=== PATIENT | female | born 1935 | race Two or more races ===

== ENCOUNTER → 2023-06-26 13:12 | Outpatient (REF) | payer OTHER, SELFPAY | LOC: RAD 13:12 | PROVIDERS: ATTENDING PHYSICIAN Nurse Practitioner Family | DX: M25.562 Pain in left knee (principal) | CPT/HCPCS: 73564 ==

== ENCOUNTER 2023-08-17 12:01 | Emergency (ER) | payer OTHER, SELFPAY ==
[2023-08-17 12:05] VITALS: BP 164/59
[2023-08-17 12:40] VITALS: BP 168/62
[2023-08-17 13:00] VITALS: BP 180/55
[2023-08-17 13:13] LABS: % Basophils 0.3 % (0-2); % Eosinophils 0.9 % (0-6); % Immature Granulocytes 0.4 % (0-0.5); % Lymphocytes 11.3 % (20.5-51.1); % Monocytes 9.4 % (1.7-9.3); % Neutrophils 77.7 % (42.2-75.2); Absolute Eosinophils 0.1 10^3/uL (0-0.7); Absolute Lymphocytes 1.1 10^3/uL (1.2-3.4); Absolute Monocytes 0.9 10^3/uL (0.1-0.6); Absolute Neutrophils 7.8 10^3/uL (1.4-6.5); Hemoglobin 13.1 g/dL (12.0-16.0); Mean Corpuscular Hgb 29.6 pg (27.0-31.0); Mean Corpuscular Volume 92.8 fL (81.0-99.0); Mean Platelet Volume 10.7 fL (7.4-10.4); Nucleated Red Blood Cells % 0 %; Platelet Count 211 10^3/uL (130-400); Red Blood Cell Count 4.42 10^6/uL (4.20-5.40)
[2023-08-17 13:22] LABS: INR 1.17; PT 14.7 Sec (11.4-14.6)
[2023-08-17 13:23] LABS: APTT 30.2 Sec (23.4-35.0)
[2023-08-17 13:40] LABS: ALT (SGPT) 22 U/L (0-35); AST (SGOT) 31 U/L (14-36); Albumin 4.6 g/dl (3.5-5.0); Alkaline Phosphatase 61 U/L (38-126); Blood Urea Nitrogen 47 mg/dl (7-17); Calcium 9.7 mg/dl (8.4-10.2); Carbon Dioxide 28 mmol/L (22-30); Chloride 102 mmol/L (98-107); Glucose 98 mg/dl (70-99); Potassium 4.4 mmol/L (3.5-5.1); Sodium 140 mmol/L (135-145); Total Bilirubin 0.6 mg/dl (0.2-1.3); Total Protein 7.4 g/dl (6.3-8.2); eGFR 18.27
--- NOTE | 2023-08-17 13:48 | ED.GENMED ---
History of Present Illness
General
Chief Complaint: Fall
Source: patient
Exam Limitations: none
Time Seen by Provider: 08/17/23 13:19
Nursing documentation reviewed up to this point in time: agreed with
History of Present Illness
History of Present Illness:
88-year-old female presents emerged from complaining of a fall, back pain and head pain this occurred yesterday. She got dizzy and fell. She complains of right-sided back pain and headache. She has a tremor which they state is from amiodarone.
Past History
Past History
ED Past Medical History: Arrthythmia and HTN
ED Past Surgical History: Cardiac (Pacemaker)
Social History
Tobacco: Non-smoker
Alcohol: None
Drug: None
Personal:
Living: with family
Review of Systems
Review of Systems
Allergies reviewed?: Yes
All Other Systems: Not applicable
Constitutional: Reports no symptoms
EENT: Reports no symptoms
Respiratory: Reports no symptoms
Cardiac: Reports no symptoms; Denies syncope
ABD/GI: Reports no symptoms
: Reports no symptoms
Musculoskeletal: Reports no symptoms
Skin: Reports no symptoms
Neurological: Reports no symptoms
Phy Exam
Physical Exam
Physical Exam:
Physical Exam
General: no apparent distress, not acutely ill
Neck: supple. no meningeal signs. normal posterior pharynx
Heart: s1/s2 regular rate and rhythm, no murmur. equal radial
pulses. Pacemaker left upper chest
HEENT: Pupils equal round reactive to light, EOMI
Lungs: no acute respiratory distress. clear bilaterally, tender to palpation right posterior ribs
Abdomen: normal bowel sounds. not tender. no CVAT
Neuro: alert and oriented. no focal neurological deficits cranial nerves II through XII intact, resting tremor
Skin: no rash
Psychiatric: well kept. interactive and cooperative
Extremities: no edema. no calf tenderness. negative homans. good distal pulses
Course
Orders/Labs/Results
Orders:
Orders
08/17/23 12:11
CT Head W/o Iv Contrast Stat
Comment:
Reason For Exam: Fall on Eliquis
08/17/23 12:13
Electrocardiogram (*1) Urgent
Reason for Study: Vertigo / Dizzy
EKG- Treatment ONCE
08/17/23 12:45
CMP [Comprehensive Metabolic Panel] Urgent
Complete Blood Count/With Diff Urgent
PT/INR [Prothrombin Time] Urgent
PTT Urgent
08/17/23 13:45
Acetaminophen [Tylenol] 650 mg PO NOW STA
Ribs, Right 3 View W/PA Chest [CR Ribs-right 3 Vw W/pa Chest*] Urgent
Comment:
Reason For Exam: right rib pain
08/17/23 15:04
Lidocaine [Lidocaine 4% Patch] 1 patch TOPICAL STAT STA
Abnormal Lab Results
08/17/23
12:45
MCHC 32.0 L g/dL
(33.0-37.0)
MPV 10.7 H fL
(7.4-10.4)
Absolute Neuts (auto) 7.8 H 10^3/uL
(1.4-6.5)
Absolute Lymphs (auto) 1.1 L 10^3/uL
(1.2-3.4)
Absolute Monos (auto) 0.9 H 10^3/uL
(0.1-0.6)
Neutrophils % 77.7 H %
(42.2-75.2)
Lymphocytes % 11.3 L %
(20.5-51.1)
Monocytes % 9.4 H %
(1.7-9.3)
PT 14.7 H Sec
(11.4-14.6)
BUN 47 H mg/dl
(7-17)
Creatinine 2.5 H mg/dL
(0.6-1.0)
08/17/23 12:45
08/17/23 12:45
Vital Signs
Initial and Last Documented VS:
Initial Vital Signs
Temp Pulse Resp BP Pulse Ox
98.0 F 62 18 164/59 98
08/17/23 12:05 08/17/23 12:05 08/17/23 12:05 08/17/23 12:05 08/17/23 12:05
Last Documented Vital Signs
Temp Pulse Resp BP Pulse Ox
98.0 F 60 18 154/65 95
08/17/23 12:05 08/17/23 14:03 08/17/23 14:03 08/17/23 15:15 08/17/23 15:16
MDM/Problems Addressed
Differential Diagnosis Includes:
Intracranial hemorrhage, pneumothorax, rib fracture
MDM/Problems Addressed:
88-year-old female with right rib fracture, fall, chronic renal failure
Chronic conditions affecting care: Arrhythmia and Kidney disease
Acute Exacerbation and/or Progression of Chronic Illness: Arrhythmia and Kidney disease
*Radiology
Radiology exam reviewed: radiology read reviewed (CT head no acute findings, chest x-ray shows right rib fracture seventh rib)
*Pulse Oximetry
Patient hypoxic: no
*EKG
Interpreted by ED Provider?: Yes
EKG Intrepretation Date: 08/17/23
EKG Intrepretation Time: 12:19
Interpretation: abnormal
Comparison EKG: no comparison EKG present
Heart Rate: 60
Rate: normal
Rhythm: av sequential
[place]: normal axis
Interval: normal interval
QRS Pattern: normal QRS
Ischemia: no ischemia
*Fabric Worker Fitter Interpretation
Rate: normal
Interpretation: abnormal
Heart Rate: 60
Rhythm: av sequential
*Critical Care Note
Total Time (30-74mins, 75-104mins- exclusive of procedures): Not Applicable
Patient Management
Social determinants of health affecting care: Living situation and Strong social support
Escalation/DeEscalation of care consider admission/obs:
Admit not indicated
ED Attending Note
-
Portions of this chart may have been created with voice recognition software.� Occasional wrong word or��sound alike� substitutions may have occurred due to the inherent limitations of voice recognition software.
Discharge Plan
Departure
Patient Disposition: Home (Routine Discharge)
Date of Disposition: 08/17/23
Time of Disposition: 15:08
Patient with high blood pressure during this ER visit?: Yes
Condition: Good
Discharge Problem:
Right rib fracture, Fall
Instructions: Head Injury in Adults (DC), Preventing falls in adults, BLOOD PRESSURE, Rib Fracture
Prescriptions:
New
lidocaine [Lidoderm] 5 % adhesive patch,medicated
1 patch topical DAILY Qty: 15 0RF
No Action
doxycycline monohydrate 100 mg capsule
100 mg PO BID Qty: 10 0RF
benzonatate 200 mg capsule
200 mg PO TID PRN (Reason: Cough) Qty: 20 0RF
Referrals:
UNKNOWN - PT DOES,NOT KNOW [Family Provider] -
Interventions
Interventions:
*Risk Screen - Suicide Last Done: 08/17/23 12:42
*General Assessment Last Done: 08/17/23 12:42
*Neglect/Abuse Screening Last Done: 08/17/23 12:42
ED- Fall Risk Assessment Last Done: 08/17/23 15:21
*ED COVID-19 Vaccine History Last Done: 08/17/23 12:42
*Nursing Disposition Last Done: 08/17/23 15:21
ED-Musculoskeletal Assessment Last Done: 08/17/23 12:42
ED- Neurological Assessment Last Done: 08/17/23 12:42
ED-Skin Assessment Last Done: 08/17/23 12:42
Discharge Date and Time
Discharge Date/Time: 08/17/23 15:25
Print Language: PERSIAN
[2023-08-17] MEDS: TYLENOL 650 MG PO (13:51)
[2023-08-17 15:15] VITALS: BP 154/65
[2023-08-17] MEDS: LIDOCAINE 4% PATCH 1 PATCH TOPICAL (15:18)
== END 2023-08-17 15:25 | disposition home or self-care (01) ==
LOC: EMR 12:01
PROVIDERS: Emergency Medicine; EMERGENCY PHYSICIAN Emergency Medicine
DX: S22.31XA Fracture of one rib, right side, initial encounter for closed fracture (principal); R42 Dizziness and giddiness; R51.9 Headache, unspecified; W19.XXXA Unspecified fall, initial encounter; R25.1 Tremor, unspecified; I12.9 Hypertensive chronic kidney disease with stage 1 through stage 4 chronic kidney disease, or unspecified chronic kidney disease; N18.9 Chronic kidney disease, unspecified; I48.91 Unspecified atrial fibrillation; Z95.0 Presence of cardiac pacemaker
CPT/HCPCS: 99284; 70450; 71101; 80053; 85025; 85610; 85730; 93005

== ENCOUNTER → 2024-03-13 12:08 | Outpatient (REF) | payer OTHER, SELFPAY | LOC: RAD 12:08 | PROVIDERS: ATTENDING PHYSICIAN Family Medicine | DX: M25.561 Pain in right knee (principal) | CPT/HCPCS: 73562; 73565 ==

== ENCOUNTER 2024-08-10 23:33 | Inpatient (IN) | payer MEDICARE, SELFPAY ==
[2024-08-10] VITALS (15 sets, daily range): BP systolic 123–251; BP diastolic 56–107; BMI 16.7
[2024-08-10 18:32] LABS: % Basophils 0.3 % (0-2); % Eosinophils 0.6 % (0-6); % Immature Granulocytes 0.3 % (0-0.5); % Lymphocytes 13.1 % (20.5-51.1); % Monocytes 10.3 % (1.7-9.3); % Neutrophils 75.4 % (42.2-75.2); Absolute Eosinophils 0.1 10^3/uL (0-0.7); Absolute Lymphocytes 1.3 10^3/uL (1.2-3.4); Absolute Neutrophils 7.4 10^3/uL (1.4-6.5); Hematocrit 40.6 % (37.0-47.0); Hemoglobin 13.8 g/dL (12.0-16.0); Mean Corpuscular Hgb 31.3 pg (27.0-31.0); Mean Corpuscular Volume 92.1 fL (81.0-99.0); Nucleated Red Blood Cells % 0 %; Platelet Count 215 10^3/uL (130-400); Red Blood Cell Count 4.41 10^6/uL (4.20-5.40); Red Cell Dist. Width 12.6 % (11.5-14.5); White Blood Cell Count 9.8 10^3/uL (4.8-10.8)
[2024-08-10 18:54] LABS: ALT (SGPT) 21 U/L (0-35); AST (SGOT) 27 U/L (14-36); Albumin 4.4 g/dl (3.5-5.0); Alkaline Phosphatase 64 U/L (38-126); Blood Urea Nitrogen 57 mg/dl (7-17); Calcium 9.5 mg/dl (8.4-10.2); Carbon Dioxide 24 mmol/L (22-30); Chloride 103 mmol/L (98-107); Glucose 123 mg/dl (70-99); Potassium 4.4 mmol/L (3.5-5.1); Sodium 138 mmol/L (135-145); Total Bilirubin 0.5 mg/dl (0.2-1.3); eGFR 23.73
[2024-08-10 19:06] LABS: Troponin I 0.018 ng/ml
--- NOTE | 2024-08-10 19:20 | ED.GENMED ---
History of Present Illness
General
Chief Complaint: Blood Pressure Problem
Source: patient and family (Son)
Exam Limitations: none
Time Seen by Provider: 08/10/24 19:06
Nursing documentation reviewed up to this point in time: agreed with
History of Present Illness
History of Present Illness:
89-year-old female with a past medical history of atrial fibrillation on Eliquis, hypertension, pacemaker, CKD who presents to the emergency room with her son for evaluation of hypertension, frequent falls, headache and dizziness. Patient reports
that her primary reason for coming to the hospital today is due to severe hypertension. She says that she checks her blood pressure regularly and lately her blood pressures have been high, today blood pressure was very high at 220 systolic which
ultimately prompted her ER visit. She says she has been compliant with all her medications including metoprolol for blood pressure; she denies any recent adjustments last adjustment to her blood pressure medication was over 2 months ago. She
denies any missed doses.
Apart from blood pressure, patient is also complaining of significant weakness and frequent falls recently. She specifically cites a few falls last week�son says that she gets up to go to the bathroom at night and slips and falls. She says that
she hit her head and her chest and has had some headaches, dizziness, rib pain particular on the right side. The symptoms have been constant for the past week. She says she has been feeling mildly nauseated no vomiting. Denies any neck or back
pain. She denies any abdominal pain. She denies any injury to her extremities. She is on Eliquis.
Past History
Past History
ED Past Medical History: Arrthythmia and HTN
ED Past Surgical History: Cardiac (Pacemaker)
Social History
Tobacco: Non-smoker
Alcohol: None
Drug: None
Personal:
Living: with family
Review of Systems
Review of Systems
All Other Systems: ROS reviewed and negative except as documented in HPI and ROS
Constitutional: Reports fatigue; Denies fever
Respiratory: Denies trouble breathing
Cardiac: Reports chest pain (Rib pain)
ABD/GI: Reports nausea and diarrhea; Denies abdominal pain or vomiting
: Denies dysuria or flank pain
Musculoskeletal: Denies neck pain or back pain
Neurological: Reports dizzy, headache and weakness (Generalized); Denies numbness
Phy Exam
Physical Exam
Physical Exam:
General: Awake, alert, oriented x3 although hard of hearing; no acute distress
Head: Normocephalic, atraumatic
Eyes: Conjunctiva normal, EOMI, pupils equal round and reactive to light bilaterally
Throat: Airway intact, handling secretions, tongue atraumatic
Neck: Trachea midline, supple without meningismus, no midline cervical spine tenderness
Back: No signs of trauma to the back or flank and no tenderness in the thoracic or lumbar spine
Lungs: Clear to auscultation bilaterally, no wheezing, rales, rhonchi
Heart: Regular rate and rhythm, no murmurs, gallops, or rubs appreciated; mild posterior lateral right chest wall tenderness but no crepitus, no ecchymosis
Abd: Soft, non distended, nontender, no palpable masses
Neuro: Cranial nerves intact 2 through 12, speech fluid no dysarthria or aphasia, motor and sensory exam intact and symmetric proximally and distally in the upper and lower extremities
Extremities: Atraumatic, no edema in extremities, equal pulses in all extremities
Scores
Heart Failure Risk
Heart Failure Risk Score: Not Applicable
Heart Score for Chest Pain Patients
STEMI patient?: Not applicable
Withdrawal Assessment of Alcohol
Withdrawal Assessment Completed?: Not applicable
Course
Orders/Labs/Results
Orders:
Orders
08/10/24 18:19
Electrocardiogram (*1) Urgent
Reason for Study: Vertigo / Dizzy
CT Head W/o Iv Contrast Urgent
Comment:
Reason For Exam: dizziness/headache
08/10/24 18:20
EKG- Treatment ONCE
08/10/24 18:27
Complete Blood Count/With Diff Urgent
Comprehensive Metabolic Panel Urgent
Troponin I Urgent
08/10/24 19:19
CT Cervical Spine W/o Iv Contr Urgent
Comment:
Reason For Exam: fall with head strike; headaches
CT Chest W/o Iv Contrast Urgent
Comment:
Reason For Exam: right rib pain s/p fall
Labetalol HCl [Trandate] 10 mg IV NOW STA
08/10/24 19:20
Urinalysis Reflex To Culture Urgent
08/10/24 19:21
Interrogate Pacemaker- Treatment ONCE
08/10/24 20:08
Labetalol HCl [Trandate] 20 mg IV NOW STA
08/10/24 22:11
HydrALAZINE [Apresoline] 10 mg IV NOW STA
08/10/24 23:00
Flush (0.9% Sodium Chloride) [Flush (Nss)] See Dose Instructions IV PER PROTOCOL
08/10/24 23:18
Admit/Transfer Patient As Directed
Co-Sign Provider:
Level of Care: Inpatient admission
Assign to:: Telemetry
Physician / Group: Harris
Diagnosis: Hypertensive Urgency, Tremor, Gait Dysfunction
Reason for Telemetry: Arrhythmia
Date to Stop Telemetry: 08/13/24
Time to Stop Telemetry: 11:00
Reason for Hospitalization: Hypertensive Urgency, Tremor, Gait Dysfunction
Expected length of stay greater than two midnights?: Yes
ELOS- Estimated Length of Stay in days: 2
I certify the patient meets the requirements for IP care: Yes
08/10/24 23:19
PRN Pain Medication Management As Directed
May give lesser potent ordered pain med per pt: Yes
preference::
Protocol:: Medication orders for pain may be administered in a
manner that supports deferring to patient preference
when the pt is:
- Requesting an ordered lesser potent pain medication.
Least to most potent pain medications are defined
as: acetaminophen < NSAID < tramadol < opioids
(morphine, oxycodone, hydromorphone).
- Requesting a lesser dose of the same medication IF
ORDERED.
- Requesting a less intrusive route of administration
if both routes are prescribed by the provider (PO <
IV).
08/10/24 23:21
Code Status As Directed
Resuscitation Status: Full Code
08/13/24 11:00
DC Protocol for Telemetry ONCE
Abnormal Lab Results
08/10/24
18:27
MCH 31.3 H pg
(27.0-31.0)
MPV 11.0 H fL
(7.4-10.4)
Absolute Neuts (auto) 7.4 H 10^3/uL
(1.4-6.5)
Absolute Monos (auto) 1.0 H 10^3/uL
(0.1-0.6)
Neutrophils % 75.4 H %
(42.2-75.2)
Lymphocytes % 13.1 L %
(20.5-51.1)
Monocytes % 10.3 H %
(1.7-9.3)
BUN 57 H mg/dl
(7-17)
Creatinine 2.0 H mg/dL
(0.6-1.0)
Glucose 123 H mg/dl
(70-99)
08/10/24 18:27
08/10/24 18:27
Vital Signs
Initial and Last Documented VS:
Initial Vital Signs
Temp Pulse Resp BP Pulse Ox
36.7 C 78 20 196/98 97
08/10/24 18:18 08/10/24 18:18 08/10/24 18:18 08/10/24 18:18 08/10/24 18:18
Last Documented Vital Signs
Temp Pulse Resp BP Pulse Ox
36.7 C 77 21 162/64 95
08/10/24 18:18 08/10/24 23:00 08/10/24 23:00 08/10/24 22:54 08/10/24 23:00
MDM/Problems Addressed
Differential Diagnosis Includes:
Hypertension--urgency versus emergency
Frequent falls--must rule out traumatic injury including subarachnoid, subdural, intraparenchymal brain bleed as well as rib fractures
MDM/Problems Addressed:
89-year-old female presents for evaluation of severe hypertension despite medication compliance; she has also been feeling unwell for the past week including feeling generalized weakness, multiple falls, headaches, dizziness, rib pain. Vitals and
exam as above�notably her blood pressure in triage was 196/98�during my assessment her blood pressure was markedly elevated to 243/81. Heart rate in the 70s. Rest of vitals normal. Physical exam as above. She had lab work sent in triage
including CBC which showed no clinically significant abnormalities, CMP which showed stable CKD with creatinine of 2.0. Her troponin is negative. EKG is a sinus rhythm with LVH and nonspecific ST changes; will interrogate her device. Will check
CT of the head, cervical spine, chest. Will provide dose of IV labetalol for treatment of severe hypertension. Reassess after the above.
Blood pressure after initial dose of labetalol still markedly elevated to 223/73. Heart rate 80s. Provide repeat dose of labetalol and reassess.
Blood pressure improving slightly�continue to monitor.
CT head shows no acute abnormalities. CT cervical spine and chest reviewed by me showed no acute posttraumatic pathology�final report pending. Her blood pressure is still over 200 after transient improvement status post second dose of labetalol.
Will trial hydralazine. At this point with persistent blood pressure greater than 200 I think she should be admitted for management of her hypertensive urgency refractory to treatment. Discussed case with hospitalist.
Chronic conditions affecting care:
Hypertension, atrial fibrillation
Acute Exacerbation and/or Progression of Chronic Illness:
Acutely hypertensive treated as above
*Radiology
Radiology exam reviewed: radiology read reviewed
*Pulse Oximetry
Patient hypoxic: no
*EKG
Interpreted by ED Provider?: Yes
Heart Rate: 73
Rate: normal
Rhythm: sinus
[place]: normal axis
Interval: normal interval
QRS Pattern: left vent hypertrophy
Ischemia: non-specific ST changes
*Critical Care Note
Total Time (30-74mins, 75-104mins- exclusive of procedures): Not Applicable
Data Reviewed
Review of Other/Old Records Reveals: Labs and Records
Source: patient and family
Patient Management
Discussion with other providers: Hospitalist (Discussed with hospitalist)
Escalation/DeEscalation of care consider admission/obs:
Admission indicated
ED Attending Note
-
Portions of this chart may have been created with voice recognition software.� Occasional wrong word or��sound alike� substitutions may have occurred due to the inherent limitations of voice recognition software.
Discharge Plan
Departure
Patient Disposition: Admit
Date of Disposition: 08/10/24
Time of Disposition: 22:13
Admit to doctor: Harris
Presentation/result/management discussed w/ accepting MD/DO: Hospitalist
Discharge Problem:
Hypertensive urgency
Interventions
Interventions:
*Risk Screen - Suicide Last Done: 08/10/24 19:00
*General Assessment Last Done: 08/10/24 18:18
*Neglect/Abuse Screening Last Done: 08/10/24 19:00
*ED- Fall Risk Assessment Last Done: 08/10/24 19:00
*ED COVID-19 Vaccine History Last Done: 08/10/24 19:00
ED- Cardiac Assessment Last Done: 08/10/24 19:00
ED- Neurological Assessment Last Done: 08/10/24 19:00
ED- Pulmonary Assessment Last Done: 08/10/24 19:00
[2024-08-10] MEDS: TRANDATE 10 MG IV (19:25)
[2024-08-10] MEDS: TRANDATE 20 MG IV (20:15)
[2024-08-10] MEDS: APRESOLINE 10 MG IV (22:24)
--- NOTE | 2024-08-10 23:25 | HPS.HSE ---
Family Physician
-
Family Physician: NOT KNOW UNKNOWN - PT DOES
Chief Complaint
-
Tremors, Falls, High BP
History of Present Illness
Patient is an 89y F with PMH significant for hypertension, A-Fib and CKD who presents to ED complaining of tremors, frequent falls and elevated BP. Patient states that she has had worsening tremors over the past 2 weeks or so. Several falls at
home in that time period - multiple with head impact / injury. Patient complains of aches / pain in both shoulders, L hip, headache, etc. She has had tremulous since February of this year and has been seen by Neurology for evaluation. Results of
that work up are unknown - though her symptoms have significantly increased recently. Patient states that she was given a medication (does not know the name) for her shaking, but it made her nauseated and she had to stop taking it.
She has been monitoring her BP at home as well and states that it was very high today with values > 200 systolic at home.
This prompted her to present to the ED for further evaluation and treatment.
Outpatient notes via External Med Summary indicate that patient's med list is not consistent with recommended medications from Cardiology / Nephrology.
Specifically, she is recommended to be on spironolactone yet this never appears on her own med list.
She was also previously on amlodipine and doxazosin. It is not clear from the notes whether these were officially discontinued or patient simply stopped taking them.
Last month, her amiodarone was increased due to A-fib burden (30%) and her Toprol was changed to BID due to A-fib and uncontrolled BP.
Medical History
Past Medical History
Past Medical History: Reports Other
Additional Past Medical History:
Hypertension
Paroxysmal Atrial Fibrillation
SSS s/p PPM
CKD IV
COPD
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
Past Surgical History: Reports Other
Additional Past Surgical History:
PPM Placement
Hernia Repair
Social History
Tobacco: Non-smoker
Alcohol: None
Drug: None
Family History
Family History: Not pertinent
Allergies / Home Medications
Allergies reflects when Allergies were last updated in [facility].
Home Medications with original date entered in [facility]
Allergy/Medication List:
Allergies
Allergy/AdvReac Type Severity Reaction Status Date / Time
No Known Allergies Allergy Verified 08/10/24 18:18
Home Medications
amiodarone 200 mg tablet 200 mg PO DAILY 08/10/24
apixaban 2.5 mg tablet (Eliquis) 2.5 mg PO BID 08/10/24
cephalexin 500 mg capsule 500 mg PO BID 08/10/24
cholecalciferol (vitamin D3) 25 mcg (1,000 unit) tablet (Vitamin D3) 25 mcg PO DAILY 08/10/24
cyanocobalamin (vitamin B-12) 1,000 mcg tablet 1,000 mcg PO DAILY 08/10/24
dapagliflozin propanediol 5 mg tablet (Farxiga) 5 mg PO DAILY 08/10/24
metoprolol succinate 25 mg tablet,extended release 24 hr (Toprol XL) 25 mg PO BID 08/10/24
Review of Systems
-
History Source: Patient
A 12 point ROS was completed and negative except as noted: Yes
Constitutional: Reports Fatigue; Denies Fever or Chills
EENT: Denies Sore Throat
Respiratory: Reports Trouble Breathing (dyspnea with activity / exertion); Denies Cough
Cardiac: Denies Chest Pain or Syncope
Abdomen/GI: Denies Abdominal Pain, Nausea, Vomiting or Diarrhea
: Denies Dysuria, Frequency or Flank Pain
Musculoskeletal: Reports Joint Pain and Muscle Pain; Denies Edema
Neurological: Reports Dizzy, Headache and Weakness; Denies Numbness
Psych: Denies Depression or Anxiety
Physical Exam
Vital Signs
Vital Signs
Temp Pulse Resp BP Pulse Ox
98.0 F 77 21 162/64 95
08/10/24 18:18 08/10/24 23:00 08/10/24 23:00 08/10/24 22:54 08/10/24 23:00
Physical Exam
General: Other (89y F in mild distress due to pain / tremulousness.)
HEENT: Moist mucous membranes and PERRLA
Respiratory: Clear; No Wheezes, Rales or Rhonchi
Cardiac: S1/S2 and Regular Rhythm; No Murmur
GI: Soft, Non Tender, Non Distended and Normal Bowel Sounds
Musculoskeletal: No Clubbing, No Cyanosis and No Edema
Neuro: AO x 3, Nonfocal/grossly intact and Other (Generalized tremor at rest and with intent. No cogwheeling / rigidity appreciated.)
Laboratory Results
-
08/10/24 18:27
08/10/24 18:27
Laboratory Results
Total Bilirubin 0.5 mg/dl (0.2-1.3) 08/10/24 18:27
AST 27 U/L (14-36) 08/10/24 18:27
ALT 21 U/L (0-35) 08/10/24 18:27
Alkaline Phosphatase 64 U/L (38-126) 08/10/24 18:27
Troponin I 0.018 ng/ml 08/10/24 18:27
Impression/Plan
-
A/P: Patient is an 89y F with PMH significant for hypertension, A-Fib and CKD who presents to ED for evaluation of tremor, gait dysfunction and elevated BP.
Tremulousness
Ambulatory Dysfunction
Frequent Falls
- Admit for further evaluation and treatment.
- PT / OT evaluations.
- Neurology eval for additional recommendations.
- ? Parkinsonism given tremors / gait issues - though no significant rigidity, etc noted on exam.
- Suspect that patient would benefit from use of assist device with ambulation - currently she uses none.
Hypertensive Urgency
- BP markedly elevated on initial arrival today.
- Suspect significant tremor is impacting BP measurements to some degree as well.
- Note apparent issues with med list accuracy / compliance / etc based on outpatient notes.
- Restart spironolactone and doxazosin for now.
- Continue Toprol BID. Continue Farxiga.
- Adjust med regimen as needed for improved control.
- IV hydralazine as needed for very high BPs acutely.
- Follow-up with Nephrology (Dr. Aroldo Rodgers) at discharge.
Paroxysmal Atrial Fibrillation
- Stable. Continue amiodarone and Toprol.
- Continue Eliquis for stroke risk reduction - may need to re-evaluate risk : benefit given fall frequency.
CKD IV
- Stable. SCr is at / near known baseline.
- Follow for changes with above medication adjustments.
DVT Prophylaxis: On Eliquis
Code Status: Full
[2024-08-11] VITALS (11 sets, daily range): BP systolic 115–206; BP diastolic 60–86; PULSE 110; BMI 17.9; BMI 17.4
[2024-08-11 00:35] LABS: Urine Albumin 3+ (Neg - Trace); Urine Bilirubin Negative (Negative); Urine Character Clear (Clear); Urine Color Yellow; Urine Glucose 4+ (Negative); Urine Ketone Negative (Negative); Urine Leukocyte Negative (Negative); Urine Nitrite Negative (Negative); Urine Occult Blood Negative (Negative); Urine Urobilinogen Negative (Neg - 1+)
[2024-08-11 00:43] LABS: Urine Red Blood Cell 0-2 /HPF (0-2)
--- NOTE | 2024-08-11 02:01 | TRANSFER ---
Pt transferred to 3w from ED via stretcher. Pt pulled over to bed, bed alarm in place, daughter at bedside. Pt AAOx3, hard of hearing. Pt oriented to room, call romero within reach, plan of care ongoing.
[2024-08-11] MEDS: CARDURA 2 MG PO ×2 (02:08→23:04)
[2024-08-11 06:52] LABS: Hematocrit 36.9 % (37.0-47.0); Hemoglobin 12.9 g/dL (12.0-16.0); Mean Corpuscular Hgb 31.7 pg (27.0-31.0); Mean Corpuscular Volume 90.7 fL (81.0-99.0); Mean Platelet Volume 11.3 fL (7.4-10.4); Platelet Count 195 10^3/uL (130-400); Red Blood Cell Count 4.07 10^6/uL (4.20-5.40); Red Cell Dist. Width 12.6 % (11.5-14.5); White Blood Cell Count 9.1 10^3/uL (4.8-10.8)
[2024-08-11 07:05] LABS: Blood Urea Nitrogen 50 mg/dl (7-17); Calcium 9.4 mg/dl (8.4-10.2); Carbon Dioxide 28 mmol/L (22-30); Chloride 106 mmol/L (98-107); Estimated Creatinine Clearance 13 ml/min; Glucose 111 mg/dl (70-99); Potassium 3.9 mmol/L (3.5-5.1); Sodium 140 mmol/L (135-145); eGFR 23.73
--- NOTE | 2024-08-11 07:19 | CON.NEURO ---
Consultation
Order
Date of Consultation: 08/11/24
Requesting Provider:
Reason for Consult:
Neurology Consultation Note.
HPI: This is an 89-year-old right-handed woman who presented to [facility] on 08/10/2024 with elevated blood pressure.
Polo Cano states that she has had progressive bilateral hand/head tremor for the last couple of years. The tremors affect both hands, with her right hand being more affected. The tremors have significantly impacted her daily functioning,
particularly her ability to feed herself. For the past couple of months, her family members have been assisting her with feeding using a spoon. No reports of family history of abnormal movements, ataxia or dysarthria.
The patient tried propranolol for her tremors but experienced significant side effects, stating, 'They gave me one medication and I got so sick.' She does not recall trying any other medications.
In addition to the tremors, Ms. Cano presented with severely elevated blood pressure of 240, which prompted her hospital admission. She reports checking her blood pressure every morning at home. The patient also exhibited some coughing during the
interview, though it's unclear if this is a new symptom or related to her current condition.
ER VS: 196/98-251/88, afebrile
PDMP:none
Labs: Creatinine�2, TSH�normal
CT head wo contrast-Mild atrophy. Moderate periventricular small vessel ischemic disease.
CT C spine-moderate disc space narrowing at C5/C6, mild narrowing at C6/C7.
PMH: PA-A fib, SSS, HTN, HFpEF, COPD, CKD, pseudogout, BMI 17, vitamin D, B12 deficiency
PSH: PPM, bilateral cataract surgery, hernia repair
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
FH: Not contributory
All:NKDA
ROS: General: Positive for weight loss.
HENT: Negative for ear pain, hearing loss, tinnitus and trouble swallowing.
Eyes: Negative. Negative for photophobia, pain and visual disturbance.
Respiratory: Negative for cough, choking and shortness of breath.
Cardiovascular: Negative for chest pain, palpitations and leg swelling.
Gastrointestinal: Negative for abdominal pain and vomiting.
Endocrine: Negative. Negative for cold intolerance. y.
Musculoskeletal: Positive for arthralgias
Skin: Negative for rash.
Allergic/Immunologic: Negative. Negative for immunocompromised state.
Neurological: Positive for bilateral hand tremors, worse in right hand. Negative for leg tremors.
Psychiatric/Behavioral: Negative for behavioral problems, confusion and hallucinations.
General: Well developed. In no acute distress.
Cardio: Regular rate and rhythm without murmur. Extremities are without cyanosis or edema.
Neuro:
Mental Status: Alert, oriented to person, place, not to date. Normal attention and recall. Good fund of knowledge. Follows complex requests across the midline. Comprehension, naming, and repetition intact. Immediate and delayed recall 3/3.
Cranial Nerves: Pupils are equally round, surgical. EOMs full. Visual velarde full to confrontation. No ptosis. No nystagmus. V1-V3 intact to light touch and pinprick bilaterally, symmetric. Face symmetric. Impaired hearing AU. The palate
elevated well. SCMs and traps 5/5. Tongue midline. No dysarthria.
Motor: Normal bulk and tone. No pronator or arm drift. Strength 5/5 throughout. No clonus.
Reflexes: 3+ throughout the upper extremities and 3+in knees. Plantar responses flexor bilaterally.
Sensory: Reduced vibration at the toes and ankles
Coordination: Symmetric action and postural hand tremor, head tremor. No voice or leg tremor.
Gait: deferred
Assessment and Plan:
I. Extrapyramidal syndrome
II. Hypertensive urgency
III. Distal symmetric large fiber polyneuropathy
IV. PA A-Fib
-Fall precautions
-Strict blood pressure control
-Avoid medications known to cause tremor as a side effect (amiodarone)
-Start Neurontin 100 mg nightly with titration by 100 mg as tolerated. Please adjust dose based on GFR
-PT
-Consider COSMO in view of ambulatory dysfunction and systemic anticoagulation
-OP Neurology follow up.
I personally reviewed all radiology and labs along with past medical records pertinent to current medical problems. Total time spent in patient care is 60 minutes.
Thank you for allowing us to participate in the care of this patient. We will continue to follow. Please do not hesitate to contact us with any questions or concerns.
Subjective/Objective
Subjective Data
Date of Service: August 11, 2024
Objective Data
Vital Signs
Temp Pulse Resp BP Pulse Ox
36.7 C 115 16 132/72 95
08/11/24 07:05 08/11/24 07:05 08/11/24 07:05 08/11/24 07:05 08/11/24 07:05
Lab Results
08/11/24 06:12
08/11/24 06:12
Sodium 140 mmol/L (135-145) 08/11/24 06:12
Potassium 3.9 mmol/L (3.5-5.1) 08/11/24 06:12
BUN 50 mg/dl (7-17) H 08/11/24 06:12
Glucose 111 mg/dl (70-99) H 08/11/24 06:12
Calcium 9.4 mg/dl (8.4-10.2) 08/11/24 06:12
Patient Allergies
No Known Allergies Allergy (Verified 08/10/24 18:18)
Medications
-
Active Medications
Generic Name Dose Route Start Last Admin
Trade Name Freq PRN Reason Stop Dose Admin
Acetaminophen 650 mg 08/11/24 01:30
Acetaminophen 325 Mg Tablet PO 09/08/24 01:29
Q4HPRN PRN
Mild Pain / Temp > 101
Amiodarone HCl 200 mg 08/11/24 08:00
Amiodarone 200 Mg Tablet PO 09/08/24 07:59
DAILY MISTI
Apixaban 2.5 mg 08/11/24 08:00
Apixaban (Eliquis) 2.5 Mg Tablet PO 09/08/24 07:59
BID MISTI
Dapagliflozin 5 mg 08/11/24 08:00
Dapagliflozin (Farxiga) 5 Mg Tablet PO 09/08/24 07:59
DAILY MISTI
Doxazosin Mesylate 2 mg 08/11/24 01:30 08/11/24 02:08
Doxazosin 2 Mg Tablet PO 09/08/24 01:29 2 mg
HS MISTI Administration
Hydralazine HCl 5 mg 08/11/24 01:30
Hydralazine 20 Mg/Ml Vial IV 09/08/24 01:29
Q6HPRN PRN
SBP > 180
Metoprolol Succinate 25 mg 08/11/24 08:00
Metoprolol 25 Mg Extended Release Tablet PO 09/08/24 07:59
BID MISTI
Sodium Chloride 0 flush 08/10/24 23:00
Sodium Chloride 0.9% (Flush) Syringe IV 09/07/24 22:59
PER PROTOCOL MISTI
Spironolactone 12.5 mg 08/11/24 08:00
Spironolactone 12.5 Mg Dose (1/2 Of 25 Mg Tablet) PO 09/08/24 07:59
DAILY MISTI
Home Medications
�Medication �Instructions �Recorded
amiodarone 200 mg tablet 200 mg PO DAILY 08/10/24
apixaban 2.5 mg tablet (Eliquis) 2.5 mg PO BID 08/10/24
cephalexin 500 mg capsule 500 mg PO BID 08/10/24
cholecalciferol (vitamin D3) 25 25 mcg PO DAILY 08/10/24
mcg (1,000 unit) tablet (Vitamin
D3)
cyanocobalamin (vitamin B-12) 1,000 mcg PO DAILY 08/10/24
1,000 mcg tablet
dapagliflozin propanediol 5 mg 5 mg PO DAILY 08/10/24
tablet (Farxiga)
metoprolol succinate 25 mg 25 mg PO BID 08/10/24
tablet,extended release 24 hr
(Toprol XL)
Vital Signs and Labs
-
Vital Signs and Labs:
Vital Signs
Temp Pulse Resp BP Pulse Ox
36.9 C 104 19 115/60 97
08/11/24 10:53 08/11/24 10:53 08/11/24 10:53 08/11/24 10:53 08/11/24 10:53
Lab Results
08/11/24 06:12
08/11/24 06:12
Sodium 140 mmol/L (135-145) 08/11/24 06:12
Potassium 3.9 mmol/L (3.5-5.1) 08/11/24 06:12
BUN 50 mg/dl (7-17) H 08/11/24 06:12
Glucose 111 mg/dl (70-99) H 08/11/24 06:12
Calcium 9.4 mg/dl (8.4-10.2) 08/11/24 06:12
Medications
-
Medications:
Generic Name Dose Route Start Last Admin
Trade Name Freq PRN Reason Stop Dose Admin
Acetaminophen 650 mg 08/11/24 01:30
Acetaminophen 325 Mg Tablet PO 09/08/24 01:29
Q4HPRN PRN
Mild Pain / Temp > 101
Amiodarone HCl 200 mg 08/11/24 08:00 08/11/24 07:32
Amiodarone 200 Mg Tablet PO 09/08/24 07:59 200 mg
DAILY MISTI Administration
Apixaban 2.5 mg 08/11/24 08:00 08/11/24 07:32
Apixaban (Eliquis) 2.5 Mg Tablet PO 09/08/24 07:59 2.5 mg
BID MISTI Administration
Dapagliflozin 5 mg 08/11/24 08:00 08/11/24 07:32
Dapagliflozin (Farxiga) 5 Mg Tablet PO 09/08/24 07:59 5 mg
DAILY MISTI Administration
Doxazosin Mesylate 2 mg 08/11/24 01:30 08/11/24 02:08
Doxazosin 2 Mg Tablet PO 09/08/24 01:29 2 mg
HS MISTI Administration
Gabapentin 100 mg 08/11/24 11:00 08/11/24 11:21
Gabapentin 100 Mg Capsule PO 09/08/24 10:59 100 mg
BID MISTI Administration
Hydralazine HCl 5 mg 08/11/24 01:30
Hydralazine 20 Mg/Ml Vial IV 09/08/24 01:29
Q6HPRN PRN
SBP > 180
Metoprolol Succinate 25 mg 08/11/24 08:00 08/11/24 07:32
Metoprolol 25 Mg Extended Release Tablet PO 09/08/24 07:59 25 mg
BID MISTI Administration
Metoprolol Succinate 12.5 mg 08/11/24 12:41
Metoprolol 12.5 Mg Extended Release Dose (1/2 Of 25 Mg Xl Tablet) PO 08/11/24 12:42
NOW STA
Sodium Chloride 0 flush 08/10/24 23:00
Sodium Chloride 0.9% (Flush) Syringe IV 09/07/24 22:59
PER PROTOCOL MISTI
Spironolactone 12.5 mg 08/11/24 08:00 08/11/24 07:33
Spironolactone 12.5 Mg Dose (1/2 Of 25 Mg Tablet) PO 09/08/24 07:59 12.5 mg
DAILY MISTI Administration
Home Medications
-
Home Medications
amiodarone 200 mg tablet 200 mg PO DAILY Arrhythmia 08/10/24
apixaban 2.5 mg tablet (Eliquis) 2.5 mg PO BID Blood Clot Prevention/Tx 08/10/24
cephalexin 500 mg capsule 500 mg PO BID Infection 08/10/24
cholecalciferol (vitamin D3) 25 mcg (1,000 unit) tablet (Vitamin D3) 25 mcg PO DAILY Supplement 08/10/24
cyanocobalamin (vitamin B-12) 1,000 mcg tablet 1,000 mcg PO DAILY Supplement 08/10/24
dapagliflozin propanediol 5 mg tablet (Farxiga) 5 mg PO DAILY Diabetes 08/10/24
metoprolol succinate 25 mg tablet,extended release 24 hr (Toprol XL) 25 mg PO BID Heart Disease/Condition 08/10/24
[2024-08-11] MEDS: ELIQUIS 2.5 MG PO ×2 (07:32→20:15)
[2024-08-11] MEDS: FARXIGA 5 MG PO (07:32)
[2024-08-11] MEDS: TOPROL XL 25 MG PO ×2 (07:32→20:15)
[2024-08-11] MEDS: PACERONE 200 MG PO (07:32)
[2024-08-11] MEDS: ALDACTONE 12.5 MG PO (07:33)
[2024-08-11 07:36] LABS: TSH Reflex To Free T4 1.54 uIU/ml (0.47-4.68)
[2024-08-11] MEDS: NEURONTIN 100 MG PO ×2 (11:21→20:15)
--- NOTE | 2024-08-11 11:32 | CM ---
CM reviewed chart and met with pt at bedside. Lives with and son in multistory home, 2 [address], full flight to second floor,
first floor half BA, second floor BR/Full BA.
Independent in ambulation and ADLs/personal care at baseline, denies use of DMEs and no hx VN/SNF
Denies financial insecurities
Daughter lives nearby and provides assistance
Declined Advance Directive information
PCP: pt does not remember her name
Pharmacy: [facility] [place]
PT/OT pending
If SNF needs on discharge will need [facility] auth
Dispo: Anticipate home, follow for VN/SNF needs
[2024-08-11] MEDS: TOPROL XL 12.5 MG PO (12:55)
[2024-08-11 13:59] LABS: Ammonia < 9 umol/L (9-30)
--- NOTE | 2024-08-11 14:06 | W.PN.HOSP.TC ---
Today's Communication/Plan
-
see outlined plan
Assessment / Plan
Assessment / Plan
Assessment:
Tremulousness
Ambulatory Dysfunction
Frequent Falls
- d/w Neurology and diagnosed with Essential tremors - started on Gabapentin. Primidone interacts with Eliquis and patient already on beta-song
- follow Neurology recs
- PT/OT evals
Hypertensive Urgency
- Suspect significant tremor is impacting BP measurements to some degree as well.
- Note apparent issues with med list accuracy / compliance / etc based on outpatient notes.
- Restart spironolactone and doxazosin for now.
- Continue Toprol BID. Continue Farxiga.
- Adjust med regimen as needed for improved control.
- IV hydralazine as needed for very high BPs acutely.
- Follow-up with Nephrology (Dr. Aroldo Rodgers) at discharge.
Paroxysmal Atrial Fibrillation
- Stable. Continue amiodarone and Toprol.
- Continue Eliquis for stroke risk reduction - may need to re-evaluate risk : benefit given fall frequency. OP Watchman evaluation.
CKD IV
- Stable. SCr is at / near known baseline.
- Follow for changes with above medication adjustments.
DVT Prophylaxis:Eliquis
Code Status: Full
Anticipated Discharge: > 48 hours
Subjective/Interval History
-
Date of Service: August 11, 2024
resting comfortably, no complaints at present
Objective Data
-
Labs:
Laboratory Results
08/11/24
06:12
WBC 9.1
Hgb 12.9
Hct 36.9 L
Plt Count 195
Sodium 140
Potassium 3.9
Chloride 106
Carbon Dioxide 28
BUN 50 H
Creatinine 2.0 H
Glucose 111 H
Calcium 9.4
Vital Signs:
Vital Signs
Temp Pulse Resp BP Pulse Ox
98.4 F 104 19 115/60 97
08/11/24 10:53 08/11/24 10:53 08/11/24 10:53 08/11/24 10:53 08/11/24 10:53
Physical Exam
-
General: No Apparent Distress
HEENT: Normocephalic and Atraumatic
Respiratory: Negative Wheezes
Cardiac: Regular Rhythm
GI: Soft
Neuro: Tremors
Psych: Calm
Data Reviewed
-
Total Time Spent with Patient (in minutes): 45
Labs: Labs Reviewed by me
[2024-08-11 14:23] LABS: Free T4 2.25 ng/dl (0.78-2.19)
--- NOTE | 2024-08-11 14:53 | CM ---
PT rec SNF
met with daughter Donna &
options given with medicare.gov packet
daughter states will get back to CM tomorrow once reviewed.
PLAN: SNF, pending bed availability when stable, will need to obtain ins authorization
[2024-08-12] VITALS (8 sets, daily range): BP systolic 120–198; BP diastolic 63–82; PULSE 72–77; O2SAT 94; BMI 17.1
--- NOTE | 2024-08-12 04:29 | DOWNTIME ---
Addendum entered by Bhanu Barger RN 08/12/24 14:14:
Correction to downtime 08/12/2024 from 0100 to 08/12/24 at 0415.
Original Note:
There was a [employer] Downtime on 08/11/2024 from 0100 to 08/12/2024 at 0415. Downtime documentation of patient's care, including medication administrations, has been reconciled in the electronic record per guidelines. Refer to the
patient's paper chart under the miscellaneous tab to see printed paper medication records and downtime forms.
[2024-08-12 05:35] LABS: Hematocrit 34.9 % (37.0-47.0); Hemoglobin 11.9 g/dL (12.0-16.0); Mean Corp Hgb Conc. 34.1 g/dL (33.0-37.0); Mean Corpuscular Hgb 31.4 pg (27.0-31.0); Mean Corpuscular Volume 92.1 fL (81.0-99.0); Mean Platelet Volume 11.2 fL (7.4-10.4); Platelet Count 203 10^3/uL (130-400); Red Blood Cell Count 3.79 10^6/uL (4.20-5.40); Red Cell Dist. Width 12.7 % (11.5-14.5); White Blood Cell Count 8.9 10^3/uL (4.8-10.8)
[2024-08-12 06:11] LABS: Blood Urea Nitrogen 57 mg/dl (7-17); Calcium 9.1 mg/dl (8.4-10.2); Carbon Dioxide 25 mmol/L (22-30); Chloride 107 mmol/L (98-107); Estimated Creatinine Clearance 12 ml/min; Glucose 101 mg/dl (70-99); Potassium 3.9 mmol/L (3.5-5.1); Sodium 139 mmol/L (135-145); eGFR 23.73
[2024-08-12] MEDS: FARXIGA 5 MG PO (08:48)
[2024-08-12] MEDS: NEURONTIN 100 MG PO ×2 (08:49→20:12)
[2024-08-12] MEDS: TOPROL XL 25 MG PO ×2 (08:49→20:12)
[2024-08-12] MEDS: ELIQUIS 2.5 MG PO ×2 (08:49→20:11)
[2024-08-12] MEDS: ALDACTONE 12.5 MG PO (08:50)
[2024-08-12] MEDS: PACERONE 200 MG PO (08:50)
--- NOTE | 2024-08-12 11:27 | W.PN.HOSP.TC ---
Today's Communication/Plan
-
increase Cardura
continue Gabapentin
DC planning to SNF
Assessment / Plan
Assessment / Plan
Assessment:
Tremulousness
Ambulatory Dysfunction
Frequent Falls
- d/w Neurology and diagnosed with Essential tremors - started on Gabapentin. Primidone interacts with Eliquis and patient already on beta-song
- follow Neurology recs
- PT/OT evals - SNF recommended
Hypertensive Urgency
- Suspect significant tremor is impacting BP measurements to some degree as well.
- Continue spironolactone
- Continue doxazosin - increase to 4mg HS
- Continue Toprol BID. Continue Farxiga.
- Adjust med regimen as needed for improved control.
- IV hydralazine as needed for very high BPs acutely.
- Follow-up with Nephrology (Dr. Aroldo Rodgers) at discharge.
Paroxysmal Atrial Fibrillation
- Stable. Continue amiodarone and Toprol.
- Continue Eliquis for stroke risk reduction - may need to re-evaluate risk : benefit given fall frequency. OP Watchman evaluation.
CKD IV
- Stable. SCr is at / near known baseline.
- Follow for changes with above medication adjustments.
DVT Prophylaxis:Eliquis
Code Status: Full
Anticipated Discharge: 24 - 48 hours
Subjective/Interval History
-
Date of Service: August 12, 2024
denies any new complaints at present
Objective Data
-
Labs:
Laboratory Results
08/12/24
05:14
WBC 8.9
Hgb 11.9 L
Hct 34.9 L
Plt Count 203
Sodium 139
Potassium 3.9
Chloride 107
Carbon Dioxide 25
BUN 57 H
Creatinine 2.0 H
Glucose 101 H
Calcium 9.1
Vital Signs:
Vital Signs
Temp Pulse Resp BP Pulse Ox
97.5 F 69 16 179/69 96
08/12/24 07:30 08/12/24 08:49 08/12/24 07:30 08/12/24 08:49 08/12/24 07:30
I&O
08/11/24 08/12/24 08/13/24
06:59 06:59 06:59
Intake Total 600 / 600 240 / 240
Balance 600 / 600 240 / 240
Physical Exam
-
General: No Apparent Distress
HEENT: Normocephalic and Atraumatic
Respiratory: Negative Wheezes
Cardiac: Regular Rhythm and S1/S2
GI: Soft
Genito-urinary: No Costovertebral Tender
Neuro: AO x 3
Psych: Calm
Data Reviewed
-
Total Time Spent with Patient (in minutes): 42
Labs: Labs Reviewed by me
[2024-08-12] MEDS: CARDURA 2 MG PO (12:19)
--- NOTE | 2024-08-12 16:19 | CM ---
met with daughter Donna and at bedside.
[facility] Data given SNF referral made to [facility].
Pt will need auth with [employer].
IMM reviewed and signed on chart.
PLAN Locate SNF obtained auth
[2024-08-12] MEDS: CARDURA 4 MG PO (21:45)
[2024-08-13] VITALS (8 sets, daily range): BP systolic 160–195; BP diastolic 56–144; PULSE 66–73; O2SAT 96; BMI 18.2
[2024-08-13 05:51] LABS: Hemoglobin 11.3 g/dL (12.0-16.0); Mean Corp Hgb Conc. 34.2 g/dL (33.0-37.0); Mean Corpuscular Hgb 31.4 pg (27.0-31.0); Mean Corpuscular Volume 91.7 fL (81.0-99.0); Mean Platelet Volume 11.1 fL (7.4-10.4); Platelet Count 187 10^3/uL (130-400); Red Cell Dist. Width 12.7 % (11.5-14.5); White Blood Cell Count 9.1 10^3/uL (4.8-10.8)
[2024-08-13 06:13] LABS: Blood Urea Nitrogen 73 mg/dl (7-17); Calcium 9.2 mg/dl (8.4-10.2); Carbon Dioxide 25 mmol/L (22-30); Chloride 107 mmol/L (98-107); Estimated Creatinine Clearance 14 ml/min; Glucose 94 mg/dl (70-99); Potassium 4.3 mmol/L (3.5-5.1); Sodium 138 mmol/L (135-145); eGFR 25.24
[2024-08-13] MEDS: TOPROL XL 25 MG PO ×2 (07:51→21:33)
[2024-08-13] MEDS: PACERONE 200 MG PO (07:51)
[2024-08-13] MEDS: NEURONTIN 100 MG PO ×2 (07:51→21:32)
[2024-08-13] MEDS: ELIQUIS 2.5 MG PO ×2 (07:51→21:32)
[2024-08-13] MEDS: ALDACTONE 12.5 MG PO (07:51)
[2024-08-13] MEDS: FARXIGA 5 MG PO (07:51)
[2024-08-13] MEDS: APRESOLINE 5 MG IV ×2 (10:15→16:29)
--- NOTE | 2024-08-13 12:04 | W.PN.HOSP.TC ---
Today's Communication/Plan
-
add Hydralazine PO and assess BP response
Assessment / Plan
Assessment / Plan
Assessment:
Tremulousness
Ambulatory Dysfunction
Frequent Falls
- d/w Neurology on 08/11 and diagnosed with Essential tremors - started on Gabapentin. alternative agents to treat include Primidone (interacts with Eliquis) and beta-song (already on it)
- follow Neurology recs
- PT/OT evals - SNF recommended
Hypertensive Urgency
- Suspect significant tremor is impacting BP measurements to some degree as well.
- Continue spironolactone
- Continue doxazosin - increase to 4mg HS
- Continue Toprol BID.
- continue Hydralazine bid
- continue Farxiga.
- IV hydralazine as needed for very high BPs acutely.
- Adjust med regimen as needed for improved control.
- Follow-up with Nephrology (Dr. Aroldo Rodgers) - records requested.
Paroxysmal Atrial Fibrillation
- Stable. Continue amiodarone and Toprol.
- Continue Eliquis for stroke risk reduction - may need to re-evaluate risk after rehab: benefit given fall frequency. OP Watchman evaluation.
CKD IV
- Stable. SCr is at/near known baseline.
- Follow for changes with above medication adjustments.
DVT Prophylaxis:Eliquis
Code Status: Full
Anticipated Discharge: 24 - 48 hours
Subjective/Interval History
-
Date of Service: August 13, 2024
reports headache from elevated BP
Objective Data
-
Labs:
Laboratory Results
08/13/24
05:12
WBC 9.1
Hgb 11.3 L
Hct 33.0 L
Plt Count 187
Sodium 138
Potassium 4.3
Chloride 107
Carbon Dioxide 25
BUN 73 H
Creatinine 1.9 H
Glucose 94
Calcium 9.2
Vital Signs:
Vital Signs
Temp Pulse Resp BP Pulse Ox
98.5 F 64 16 182/56 96
08/13/24 11:26 08/13/24 10:15 08/13/24 07:00 08/13/24 11:44 08/13/24 11:26
I&O
08/12/24 08/13/24 08/14/24
06:59 06:59 06:59
Intake Total 600 / 600 1800 / 1800
Balance 600 / 600 1800 / 1800
Physical Exam
-
General: No Apparent Distress
HEENT: Normocephalic and Atraumatic
Respiratory: Negative Wheezes
Cardiac: Regular Rhythm and S1/S2
GI: Negative Soft
Genito-urinary: No Costovertebral Tender
Neuro: Tremors
Psych: Calm
Data Reviewed
-
Total Time Spent with Patient (in minutes): 42
Labs: Labs Reviewed by me
[2024-08-13] MEDS: APRESOLINE 25 MG PO ×2 (13:12→21:35)
--- NOTE | 2024-08-13 16:47 | CM ---
Denisha at [facility] said she had a bed.
indicated pt not ready for discahrge.
Donna dgt [phone] said she wasnts him to go to SNF. Pt will need auth.
Dgt aware that need pts social security number.
PLAN To Snf after auth obtained
--- NOTE | 2024-08-13 17:56 | PTCARENOTE ---
Pt. with elevated BP's throughout the shift. PRN medication given per parameters and MD aware. New blood pressure medication given. Plan of care ongoing.
[2024-08-13] MEDS: CARDURA 4 MG PO (21:35)
[2024-08-14] VITALS (7 sets, daily range): BP systolic 120–158; BP diastolic 65–83; PULSE 80–110; BMI 18.4
--- NOTE | 2024-08-14 10:09 | CM ---
Mariela [phone] at [facility] said she had a bed.Update sent to [facility] via care port
Will need auth [facility]:
NPI- [id number]
NPI Dr. Gerardo Alegria-[id number] -
BP elevated yesterday .
Donna dgt [phone] said she wants her to go to SNF.
Dgt aware that need pts social security number.
[facility]
report [phone]
fax [phone]
PLAN To [facility] after auth obtained
[2024-08-14] MEDS: ELIQUIS 2.5 MG PO ×2 (10:12→21:58)
[2024-08-14] MEDS: ALDACTONE 12.5 MG PO (10:12)
[2024-08-14] MEDS: APRESOLINE 25 MG PO ×2 (10:12→21:58)
[2024-08-14] MEDS: TOPROL XL 25 MG PO ×2 (10:12→21:59)
[2024-08-14] MEDS: PACERONE 200 MG PO (10:13)
[2024-08-14] MEDS: NEURONTIN 100 MG PO ×2 (10:13→21:59)
[2024-08-14] MEDS: FARXIGA 5 MG PO (10:54)
--- NOTE | 2024-08-14 12:30 | W.PN.HOSP.TC ---
Today's Communication/Plan
-
if BP stable over 24 hours, can begin placement process
Assessment / Plan
Assessment / Plan
Assessment:
Tremulousness
Ambulatory Dysfunction
Frequent Falls
- d/w Neurology on 08/11 via telephone and diagnosis per Neurology is Essential tremors - started on Gabapentin. alternative agents to treat include Primidone (interacts with Eliquis) and beta-song (already on it)
- follow Neurology recs
- PT/OT evals - SNF recommended
Hypertensive Urgency
- Suspect significant tremor is impacting BP measurements to some degree as well.
- Continue spironolactone
- Continue doxazosin - increase to 4mg HS
- Continue Toprol BID.
- continue Hydralazine bid
- continue Farxiga.
- IV hydralazine as needed for very high BPs acutely.
- Adjust med regimen as needed for improved control.
- Follow-up with Nephrology (Dr. Aroldo Rodgers) - records requested.
Paroxysmal Atrial Fibrillation
- Stable. Continue amiodarone and Toprol.
- Continue Eliquis for stroke risk reduction - may need to re-evaluate risk after rehab: benefit given fall frequency. OP Watchman evaluation.
CKD IV
- Stable. SCr is at/near known baseline.
- Follow for changes with above medication adjustments.
DVT Prophylaxis:Eliquis
Code Status: Full
Anticipated Discharge: 24 - 48 hours
Subjective/Interval History
-
Date of Service: August 14, 2024
resting comfortably, no complaints
Objective Data
-
Vital Signs:
Vital Signs
Temp Pulse Resp BP Pulse Ox
98.2 F 104 16 124/83 97
08/14/24 11:27 08/14/24 11:27 08/14/24 11:27 08/14/24 11:27 08/14/24 11:27
I&O
08/13/24 08/14/24 08/15/24
06:59 06:59 06:59
Intake Total 1800 / 1800 1200 / 1200
Balance 1800 / 1800 1200 / 1200
Physical Exam
-
General: No Apparent Distress
HEENT: Normocephalic and Atraumatic
Respiratory: Negative Wheezes
Cardiac: Regular Rhythm and S1/S2
GI: Soft and Nontender
Neuro: AO x 3
Psych: Calm
Data Reviewed
-
Total Time Spent with Patient (in minutes): 45
Labs: Labs Reviewed by me
[2024-08-14] MEDS: CARDURA 4 MG PO (21:58)
[2024-08-15 04:03] VITALS: BP 124/65
[2024-08-15 06:26] VITALS: BMI 18.6
[2024-08-15 07:00] VITALS: BP 154/59
[2024-08-15] MEDS: FARXIGA 5 MG PO (08:11)
[2024-08-15] MEDS: NEURONTIN 100 MG PO ×2 (08:11→20:07)
[2024-08-15] MEDS: ELIQUIS 2.5 MG PO ×2 (08:11→20:07)
[2024-08-15] MEDS: TOPROL XL 25 MG PO ×2 (08:11→20:06)
[2024-08-15] MEDS: PACERONE 200 MG PO (08:11)
[2024-08-15] MEDS: ALDACTONE 12.5 MG PO (08:11)
[2024-08-15] MEDS: APRESOLINE 25 MG PO ×2 (08:12→20:07)
[2024-08-15 08:37] LABS: Hematocrit 35.3 % (37.0-47.0); Hemoglobin 11.7 g/dL (12.0-16.0); Mean Corp Hgb Conc. 33.1 g/dL (33.0-37.0); Mean Corpuscular Hgb 30.6 pg (27.0-31.0); Mean Corpuscular Volume 92.4 fL (81.0-99.0); Platelet Count 208 10^3/uL (130-400); Red Blood Cell Count 3.82 10^6/uL (4.20-5.40); Red Cell Dist. Width 12.7 % (11.5-14.5)
[2024-08-15 09:17] LABS: Blood Urea Nitrogen 72 mg/dl (7-17); Calcium 9.2 mg/dl (8.4-10.2); Carbon Dioxide 25 mmol/L (22-30); Chloride 107 mmol/L (98-107); Estimated Creatinine Clearance 14 ml/min; Glucose 98 mg/dl (70-99); Potassium 4.7 mmol/L (3.5-5.1); Sodium 138 mmol/L (135-145); eGFR 25.24
--- NOTE | 2024-08-15 10:09 | W.PN.HOSP.TC ---
Today's Communication/Plan
-
Medically stable for dc to SNF pending auth/bed. CM aware.
Assessment / Plan
Assessment / Plan
Assessment:
Tremulousness
Ambulatory Dysfunction
Frequent Falls
- d/w Neurology on 08/11 via telephone and diagnosis per Neurology is Essential tremors - started on Gabapentin. alternative agents to treat include Primidone (interacts with Eliquis) and beta-song (already on it)
- follow Neurology recs
- PT/OT evals - SNF recommended and auth/bed pending
Hypertensive Urgency
- Suspect significant tremor is impacting BP measurements to some degree as well.
- Continue spironolactone
- Continue doxazosin - increased to 4mg HS
- Continue Toprol BID.
- added Hydralazine bid
- IV hydralazine as needed for very high BPs acutely.
- Adjust med regimen as needed for improved control.
- Follow-up with Nephrology (Dr. Aroldo Rodgers) - records requested. OP F/u with Dr. Rodgers.
Paroxysmal Atrial Fibrillation
- Stable. Continue amiodarone and Toprol.
- Continue Eliquis for stroke risk reduction
- discussed risk/benefit with daughter (given recent falls). For now keep Eliquis and assess progress after Rehab. D/w Outpatient Cardiology for possible OP Watchman device.
CKD IV
- Stable. SCr is at/near known baseline.
- Follow for changes with above medication adjustments.
- on Farxiga
DVT Prophylaxis:Eliquis
Code Status: Full
Dispo: Medically stable for dc to SNF pending auth/bed. CM aware.
Anticipated Discharge: 24 - 48 hours
Subjective/Interval History
-
Date of Service: August 15, 2024
resting comfortably, no complaints at present
Objective Data
-
Labs:
Laboratory Results
08/15/24
08:01
WBC 8.0
Hgb 11.7 L
Hct 35.3 L
Plt Count 208
Sodium 138
Potassium 4.7
Chloride 107
Carbon Dioxide 25
BUN 72 H
Creatinine 1.9 H
Glucose 98
Calcium 9.2
Vital Signs:
Vital Signs
Temp Pulse Resp BP Pulse Ox
97.5 F 64 16 154/59 96
08/15/24 07:00 08/15/24 08:12 08/15/24 07:00 08/15/24 08:12 08/15/24 09:00
I&O
08/14/24 08/15/24 08/16/24
06:59 06:59 06:59
Intake Total 1200 / 1200 120 / 120
Balance 1200 / 1200 120 / 120
Physical Exam
-
General: No Apparent Distress
HEENT: Normocephalic and Atraumatic
Respiratory: Negative Wheezes
Cardiac: Regular Rhythm and S1/S2
GI: Soft and Nontender
Genito-urinary: No Costovertebral Tender
Neuro: AO x 3 and Tremors
Psych: Calm
Data Reviewed
-
Total Time Spent with Patient (in minutes): 41
Labs: Labs Reviewed by me
[2024-08-15 11:30] VITALS: BP 133/43
--- NOTE | 2024-08-15 13:47 | CM ---
CM spoke with physician and requested auth started. Faxed clinical information to for [facility] to start auth process. CM will continue to follow for discharge planning needs.
Plan; pending auth for [facility] when medically appropriate
--- NOTE | 2024-08-15 14:24 | CM ---
CM spoke with physician and he requested auth be started. Faxed clinical information to for [facility] to start auth process. Pending reference number #[id number]. CM will continue to follow for discharge planning needs.
Plan; pending auth for [facility] when medically appropriate
[2024-08-15 15:31] VITALS: BP 113/74
[2024-08-15 20:00] VITALS: BP 179/93; BP 197/61; BP 202/62; PULSE 61; PULSE 63; PULSE 64
[2024-08-15] MEDS: CARDURA 4 MG PO (20:07)
[2024-08-15 23:36] VITALS: BP 187/69
[2024-08-16] VITALS (7 sets, daily range): BP systolic 103–199; BP diastolic 49–71; PULSE 72–75; BMI 18.6
[2024-08-16] MEDS: APRESOLINE 5 MG IV ×3 (00:31→23:21)
[2024-08-16 06:17] LABS: Hematocrit 33.9 % (37.0-47.0); Hemoglobin 11.4 g/dL (12.0-16.0); Mean Corp Hgb Conc. 33.6 g/dL (33.0-37.0); Mean Corpuscular Hgb 30.6 pg (27.0-31.0); Mean Corpuscular Volume 90.9 fL (81.0-99.0); Mean Platelet Volume 11.2 fL (7.4-10.4); Platelet Count 201 10^3/uL (130-400); Red Blood Cell Count 3.73 10^6/uL (4.20-5.40); Red Cell Dist. Width 12.8 % (11.5-14.5); White Blood Cell Count 9.1 10^3/uL (4.8-10.8)
[2024-08-16 06:41] LABS: Blood Urea Nitrogen 87 mg/dl (7-17); Carbon Dioxide 27 mmol/L (22-30); Chloride 106 mmol/L (98-107); Estimated Creatinine Clearance 13 ml/min; Glucose 98 mg/dl (70-99); Potassium 4.9 mmol/L (3.5-5.1); Sodium 138 mmol/L (135-145); eGFR 22.38
[2024-08-16] MEDS: ALDACTONE 12.5 MG PO (08:24)
[2024-08-16] MEDS: FARXIGA 5 MG PO (08:25)
[2024-08-16] MEDS: NEURONTIN 100 MG PO ×2 (08:25→20:05)
[2024-08-16] MEDS: APRESOLINE 25 MG PO ×2 (08:25→20:04)
[2024-08-16] MEDS: PACERONE 200 MG PO (08:25)
[2024-08-16] MEDS: ELIQUIS 2.5 MG PO ×2 (08:25→20:05)
[2024-08-16] MEDS: TOPROL XL 25 MG PO ×2 (08:25→20:05)
--- NOTE | 2024-08-16 15:58 | W.PN.HOSP.TC ---
Today's Communication/Plan
-
continue current medical regiment
await decision on SNF
Assessment / Plan
Assessment / Plan
Assessment:
Tremulousness
Ambulatory Dysfunction
Frequent Falls
- d/w Neurology on 08/11 via telephone and diagnosis per Neurology is Essential tremors - started on Gabapentin. alternative agents to treat include Primidone (interacts with Eliquis) and beta-song (already on it)
call placed and reviewed with Dr. Sandoval today, 08/16, reviewed prior assessment. Pt started on Neurontin 100 bid
- follow Neurology recs
- PT/OT evals - SNF recommended and auth/bed pending
Hypertensive Urgency
- Suspect significant tremor is impacting BP measurements to some degree as well.
- Continue spironolactone
- Continue doxazosin - increased to 4mg HS
- Continue Toprol BID.
- added Hydralazine bid
- IV hydralazine as needed for very high BPs acutely.
- Adjust med regimen as needed for improved control.
- Follow-up with Nephrology (Dr. Aroldo Rodgers) - records requested. OP F/u with Dr. Rodgers.
BP most recently 141/49, will continue current Tx
Paroxysmal Atrial Fibrillation
- Stable. Continue amiodarone and Toprol.
- Continue Eliquis for stroke risk reduction
- Dr. Velazquez discussed risk/benefit with daughter (given recent falls). For now keep Eliquis and assess progress after Rehab. D/w Outpatient Cardiology for possible OP Watchman device.
CKD IV
- Stable. SCr is at/near known baseline.
- Follow for changes with above medication adjustments.
- on Farxiga
BUN/Creat 87/2.1
DVT Prophylaxis:Eliquis
Code Status: Full
Dispo: Medically stable for dc to SNF pending auth/bed. CM aware.
Anticipated Discharge: 24 - 48 hours
Subjective/Interval History
-
Date of Service: August 16, 2024
Awake, alert, conversant
Objective Data
-
Labs:
Laboratory Results
08/16/24
06:00
WBC 9.1
Hgb 11.4 L
Hct 33.9 L
Plt Count 201
Sodium 138
Potassium 4.9
Chloride 106
Carbon Dioxide 27
BUN 87 H
Creatinine 2.1 H
Glucose 98
Calcium 9.0
Vital Signs:
Vital Signs
Temp Pulse Resp BP Pulse Ox
97.5 F 71 16 141/49 98
08/16/24 11:02 08/16/24 11:02 08/16/24 11:02 08/16/24 11:02 08/16/24 11:02
I&O
08/15/24 08/16/24 08/17/24
06:59 06:59 06:59
Intake Total 120 / 120 1200 / 1200
Balance 120 / 120 1200 / 1200
Review of Systems
-
History Source: Patient and Coordinated Provider
Constitutional: Denies Fever
EENT: Reports No Symptoms Reported
Respiratory: Reports No Symptoms
Cardiac: Reports No Symptoms
Abdomen/GI: Reports No Symptoms
Genitourinary: Reports No Symptoms
Neuro: Reports Tremors
Physical Exam
-
General: Well Developed, Well Nourished, No Apparent Distress and Appears Chronically Ill (frail appearing)
HEENT: Normocephalic, Atraumatic and Moist Mucous Membranes
Respiratory: Clear to Auscultation; Negative Wheezes, Rales or Rhonchi
Cardiac: Regular Rhythm and S1/S2
GI: Soft, Nontender and Nondistended
Musculoskeletal: No Clubbing, No Cyanosis and No Edema
Neuro: Awake, Alert, Oriented, Tremors and Other (cogwheel changes noted)
--- NOTE | 2024-08-16 17:43 | PTCARENOTE ---
At 1530 vital signs pt.'s BP was elevated to 182/70. Pt. given PRN Hydralazine ordered per parameters. Rechecked 45 minutes later and pt.'s BP went up to 185/56. notified, no new orders. Will continue with current plan of care.
[2024-08-16] MEDS: CARDURA 4 MG PO (22:09)
[2024-08-17] VITALS (8 sets, daily range): BP systolic 105–167; BP diastolic 43–77; PULSE 95–98; O2SAT 95–97; BMI 18.6
[2024-08-17] MEDS: TYLENOL 650 MG PO (06:12)
[2024-08-17] MEDS: FARXIGA 5 MG PO (08:25)
[2024-08-17] MEDS: APRESOLINE 25 MG PO ×2 (08:25→22:18)
[2024-08-17] MEDS: PACERONE 200 MG PO (08:25)
[2024-08-17] MEDS: TOPROL XL 25 MG PO ×2 (08:25→22:20)
[2024-08-17] MEDS: ALDACTONE 12.5 MG PO (08:26)
[2024-08-17] MEDS: ELIQUIS 2.5 MG PO ×2 (08:26→22:19)
[2024-08-17] MEDS: NEURONTIN 100 MG PO (08:27)
--- NOTE | 2024-08-17 11:03 | CM ---
Addendum entered by Katarina Gilmore RN 08/17/24 17:07:
Dr Carmichael preformed peer to peer. Denial for rehab upheld.
Spoke with Briana who said family can do appeal.Plan of auth ID [id number] and ref # [id number]
Family Appeal to call [phone] . Donna whiting given appeal information.
Donna called CM to say they would not let her appeal because she was not on next of kin list her was.
At 3;30 this CM called [phone] and was transfer . Spoke with [place] at pts bedside. Told that for dgt to do appeal she would have to be in room with pt. Explained Donna whiting is home with her dad.Appeal done at bedside with patient who is [employer] [place].Pts
hand tremor severe.Appeal took 1 hour.
Appeal submitted as per [employer] Reference number [id number] . Appeal can take up to 72 hours. Appeal expedited.
Appeal number is [phone]. Medical provider # [phone].
Donna dgt aware.
Original Note:
[facility] called is am with denial for SNF.Reference number #[id number].
Peer to peer number [phone] Carmichael .
Updated PT OT done this am . notified.
Pt desires to go to [facility] .
Awaiting determination .
PLAN to [facility] if [facility] approves and overturns denial.
--- NOTE | 2024-08-17 14:49 | W.PN.HOSP.TC ---
Today's Communication/Plan
-
await transfer to SNF rehab. Apparently has been denied by insurance, dgt will appeal
Will need outpt neurologic follow up
Assessment / Plan
Assessment / Plan
Assessment:
Tremulousness
Ambulatory Dysfunction
Frequent Falls
- d/w Neurology on 08/11 via telephone and diagnosis per Neurology is Essential tremors - started on Gabapentin. alternative agents to treat include Primidone (interacts with Eliquis) and beta-song (already on it)
call placed and reviewed with Dr. Sandoval, 08/16, reviewed prior assessment. Pt started on Neurontin 100 bid-->200mg daily
- follow Neurology recs
- PT/OT evals - SNF recommended and auth/bed pending
Hypertensive Urgency
- Suspect significant tremor is impacting BP measurements to some degree as well.
- Continue spironolactone
- Continue doxazosin - increased to 4mg HS
- Continue Toprol BID.
- added Hydralazine bid
- IV hydralazine as needed for very high BPs acutely.
- Adjust med regimen as needed for improved control.
- Follow-up with Nephrology (Dr. Aroldo Rodgers) - records requested. OP F/u with Dr. Rodgers.
BP most recently 109/64-141/49, will continue current Tx
Paroxysmal Atrial Fibrillation
- Stable. Continue amiodarone and Toprol.
- Continue Eliquis for stroke risk reduction
- Dr. Velazquez discussed risk/benefit with daughter (given recent falls). For now keep Eliquis and assess progress after Rehab. D/w Outpatient Cardiology for possible OP Watchman device.
CKD IV
- Stable. SCr is at/near known baseline.
- Follow for changes with above medication adjustments.
- on Farxiga
BUN/Creat 87/2.1
DVT Prophylaxis:Eliquis
Code Status: Full
Dispo: Medically stable for dc to SNF pending auth/bed. CM aware.
Anticipated Discharge: 24 - 48 hours
Subjective/Interval History
-
Date of Service: August 17, 2024
awake, alert, sitting in chair
Objective Data
-
Vital Signs:
Vital Signs
Temp Pulse Resp BP Pulse Ox
97.2 F 88 16 109/64 100
08/17/24 11:00 08/17/24 11:00 08/17/24 11:00 08/17/24 11:00 08/17/24 11:00
I&O
08/16/24 08/17/24 08/18/24
06:59 06:59 06:59
Intake Total 1200 / 1200 1680 / 1680
Balance 1200 / 1200 1680 / 1680
Review of Systems
-
History Source: Patient, Family ( and dgt in room, discussed with dgt Donna jimenez out of room) and Coordinated Provider
Constitutional: Denies Fever
EENT: Reports No Symptoms Reported
Respiratory: Reports No Symptoms
Cardiac: Reports No Symptoms
Abdomen/GI: Reports No Symptoms
Genitourinary: Reports No Symptoms
Neuro: Reports Tremors
Physical Exam
-
General: Well Developed, Well Nourished, No Apparent Distress and Appears Chronically Ill (frail appearing)
HEENT: Normocephalic, Atraumatic and Moist Mucous Membranes
Respiratory: Clear to Auscultation; Negative Wheezes, Rales or Rhonchi
Cardiac: Regular Rhythm and S1/S2
GI: Soft, Nontender and Nondistended
Musculoskeletal: No Clubbing, No Cyanosis and No Edema
Neuro: Awake, Alert, Oriented, Tremors and Other (cogwheel changes noted)
--- NOTE | 2024-08-17 15:16 | PTCARENOTE ---
patient sitting oob in chair for breakfast and lunch, denies complaints, needs assistance with care, medications as she is very tremulous at times with head shaking at times as well, vss, will continue to monitor.
[2024-08-17] MEDS: NEURONTIN PO (22:19)
[2024-08-17] MEDS: CARDURA 4 MG PO (22:20)
[2024-08-18 03:00] VITALS: BP 120/56; BP 134/57; BP 159/56; PULSE 68; PULSE 72; PULSE 84
[2024-08-18 05:24] VITALS: BMI 18.8
[2024-08-18 05:54] LABS: % Basophils 0.4 % (0-2); % Eosinophils 1.1 % (0-6); % Immature Granulocytes 0.4 % (0-0.5); % Lymphocytes 12.7 % (20.5-51.1); % Monocytes 12.5 % (1.7-9.3); % Neutrophils 72.9 % (42.2-75.2); Absolute Eosinophils 0.1 10^3/uL (0-0.7); Absolute Neutrophils 5.9 10^3/uL (1.4-6.5); Hematocrit 29.9 % (37.0-47.0); Hemoglobin 10.2 g/dL (12.0-16.0); Mean Corp Hgb Conc. 34.1 g/dL (33.0-37.0); Mean Corpuscular Hgb 31.2 pg (27.0-31.0); Mean Corpuscular Volume 91.4 fL (81.0-99.0); Mean Platelet Volume 11.4 fL (7.4-10.4); Nucleated Red Blood Cells % 0 %; Platelet Count 198 10^3/uL (130-400); Red Blood Cell Count 3.27 10^6/uL (4.20-5.40); Red Cell Dist. Width 12.9 % (11.5-14.5); White Blood Cell Count 8.1 10^3/uL (4.8-10.8)
[2024-08-18 06:15] LABS: ALT (SGPT) 24 U/L (0-35); AST (SGOT) 25 U/L (14-36); Albumin 3.2 g/dl (3.5-5.0); Alkaline Phosphatase 63 U/L (38-126); Blood Urea Nitrogen 71 mg/dl (7-17); Calcium 8.6 mg/dl (8.4-10.2); Carbon Dioxide 27 mmol/L (22-30); Chloride 107 mmol/L (98-107); Estimated Creatinine Clearance 14 ml/min; Glucose 93 mg/dl (70-99); Potassium 4.8 mmol/L (3.5-5.1); Sodium 138 mmol/L (135-145); Total Bilirubin 0.4 mg/dl (0.2-1.3); Total Protein 5.4 g/dl (6.3-8.2); eGFR 25.24
[2024-08-18 07:08] VITALS: BP 132/69
[2024-08-18] MEDS: ALDACTONE 12.5 MG PO (08:24)
[2024-08-18] MEDS: FARXIGA 5 MG PO (08:24)
[2024-08-18] MEDS: PACERONE 200 MG PO (08:25)
[2024-08-18] MEDS: ELIQUIS 2.5 MG PO (08:25)
[2024-08-18] MEDS: TOPROL XL 25 MG PO (08:25)
[2024-08-18] MEDS: APRESOLINE 25 MG PO (08:26)
[2024-08-18 11:00] VITALS: BP 134/66
--- NOTE | 2024-08-18 13:07 | CM ---
Yesterday Family Appeal done by calling [phone] Reference number [id number].
Received call from [facility]i [facility] # [id number]. SNF approved for [facility] at [address] from 08/18/24 to 08/21/24 NRD call Lamar Combs at # [phone].
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
Donna whiting aware of auth and requested ambulance.
Medical nec form completed.
[facility]
report [phone]
fax [phone]
PLAN : To [facility]
--- NOTE | 2024-08-18 14:53 | W.PN.HOSP.TC ---
Today's Communication/Plan
-
dc to SNF
Assessment / Plan
Assessment / Plan
Assessment:
Tremulousness
Ambulatory Dysfunction
Frequent Falls
- d/w Neurology on 08/11 via telephone and diagnosis per Neurology is Essential tremors - started on Gabapentin. alternative agents to treat include Primidone (interacts with Eliquis) and beta-song (already on it)
call placed and reviewed with Dr. Sandoval, 08/16, reviewed prior assessment. Pt started on Neurontin 100 bid-->200mg daily
- follow Neurology recs
- PT/OT evals - SNF recommended and auth/bed just approved
Hypertensive Urgency
- Suspect significant tremor is impacting BP measurements to some degree as well.
- Continue spironolactone
- Continue doxazosin - increased to 4mg HS
- Continue Toprol BID.
- added Hydralazine bid
- IV hydralazine as needed for very high BPs acutely.
- Adjust med regimen as needed for improved control.
- Follow-up with Nephrology (Dr. Aroldo Rodgers) - records requested. OP F/u with Dr. Rodgers.
BP most recently 109/64-141/49, will continue current Tx
Paroxysmal Atrial Fibrillation
- Stable. Continue amiodarone and Toprol.
- Continue Eliquis for stroke risk reduction
- Dr. Velazquez discussed risk/benefit with daughter (given recent falls). For now keep Eliquis and assess progress after Rehab. D/w Outpatient Cardiology for possible OP Watchman device.
CKD IV
- Stable. SCr is at/near known baseline.
- Follow for changes with above medication adjustments.
- on Farxiga
BUN/Creat 71/1.9
DVT Prophylaxis:Eliquis
Code Status: Full
Dispo: will dc now
see dictated note
More than 30 minutes spent in discharge including
Final examination of the patient
Summarizing hospital stay
Instructions for continuing care to all relevant caregivers
Preparation of discharge records, prescriptions, and referral forms
Total time spent (in minutes): 45
Anticipated Discharge: Today
Subjective/Interval History
-
Date of Service: August 18, 2024
Still very tremulous, but maybe slightly less
Objective Data
-
Labs:
Laboratory Results
08/18/24
05:10
WBC 8.1
Hgb 10.2 L
Hct 29.9 L
Plt Count 198
Sodium 138
Potassium 4.8
Chloride 107
Carbon Dioxide 27
BUN 71 H
Creatinine 1.9 H
Glucose 93
Calcium 8.6
Total Bilirubin 0.4
AST 25
ALT 24
Alkaline Phosphatase 63
Vital Signs:
Vital Signs
Temp Pulse Resp BP Pulse Ox
97.8 F 68 16 134/66 98
08/18/24 11:00 08/18/24 11:00 08/18/24 11:00 08/18/24 11:00 08/18/24 11:00
I&O
08/17/24 08/18/24 08/19/24
06:59 06:59 06:59
Intake Total 1680 / 1680 400 / 400
Balance 1680 / 1680 400 / 400
Review of Systems
-
History Source: Patient and Coordinated Provider
Constitutional: Denies Fever
EENT: Reports No Symptoms Reported
Respiratory: Reports No Symptoms
Cardiac: Reports No Symptoms
Abdomen/GI: Reports No Symptoms
Genitourinary: Reports No Symptoms
Neuro: Reports Tremors
Physical Exam
-
General: Well Developed, Well Nourished, No Apparent Distress and Appears Chronically Ill (frail appearing)
HEENT: Normocephalic, Atraumatic and Moist Mucous Membranes
Respiratory: Clear to Auscultation; Negative Wheezes, Rales or Rhonchi
Cardiac: Regular Rhythm and S1/S2
GI: Soft, Nontender and Nondistended
Musculoskeletal: No Clubbing, No Cyanosis and No Edema
Neuro: Awake, Alert, Oriented, Tremors and Other (cogwheel changes noted)
[2024-08-18 15:00] VITALS: BP 168/65
--- NOTE | 2024-08-18 16:23 | W.DS.TRANS ---
DC Summary - Translator/Interpreter
-
Discharge Instructions:
Sleep Apnea Risk Low
Discharge Diagnosis/Procedures Severe Tremor, accelerated HTN
Diet Regular
Activity With assistance
Driving Restrictions No driving
Bathing Restrictions None
Blood Work CBC, CMP, UA with C&S in 2 days
Others Tests Will need outpatient neurologic evaluation to be
set up with available neurologist
Instructions:
Stand-Alone Forms:
Changes to Home Medications: Yes
Discharge Medications:
DC Medications w/original date entered in [facility] [employer]
amiodarone 200 mg tablet 200 mg PO DAILY Arrhythmia 08/10/24
apixaban 2.5 mg tablet (Eliquis) 2.5 mg PO BID Blood Clot Prevention/Tx 08/10/24
cholecalciferol (vitamin D3) 25 mcg (1,000 unit) tablet (Vitamin D3) 25 mcg PO DAILY Supplement 08/10/24
cyanocobalamin (vitamin B-12) 1,000 mcg tablet 1,000 mcg PO DAILY Supplement 08/10/24
dapagliflozin propanediol 5 mg tablet (Farxiga) 5 mg PO DAILY Diabetes 08/10/24
metoprolol succinate 25 mg tablet,extended release 24 hr (Toprol XL) 25 mg PO BID Heart Disease/Condition 08/10/24
acetaminophen 325 mg tablet 650 mg (2 x 325 mg) PO Q4HPRN PRN Mild Pain / Temp > 101 #30 tabs 08/18/24
doxazosin 4 mg tablet 4 mg PO HS #0 tabs 08/18/24
gabapentin 100 mg capsule 200 mg (2 x 100 mg) PO HS #0 caps 08/18/24
hydralazine 25 mg tablet 25 mg PO BID #0 tabs 08/18/24
spironolactone 25 mg tablet 12.5 mg (1/2 x 25 mg) PO DAILY #0 tabs 08/18/24
Home Medication Changes
Unclear which of her medications she was taking prior to admission, the list above is the medication she should remain on
with adjustment of her anti-htn if needed
Pending Results: No
== END 2024-08-18 18:19 | DRG 92 ==
LOC: 3 WEST ACU 23:33
PROVIDERS: Emergency Medicine; Internal Medicine; ADMITTING PHYSICIAN Hospitalist; ATTENDING PHYSICIAN Internal Medicine; CONSULT PHYSICIAN Psychiatry & Neurology Neurology; EMERGENCY PHYSICIAN Emergency Medicine
DX: G25.0 Essential tremor (principal); I13.0 Hypertensive heart and chronic kidney disease with heart failure and stage 1 through stage 4 chronic kidney disease, or unspecified chronic kidney disease; I50.32 Chronic diastolic (congestive) heart failure; N18.4 Chronic kidney disease, stage 4 (severe); G20.A1 Parkinson's disease without dyskinesia, without mention of fluctuations; I48.0 Paroxysmal atrial fibrillation; I16.0 Hypertensive urgency; R29.6 Repeated falls; Z95.0 Presence of cardiac pacemaker; I49.5 Sick sinus syndrome; J44.9 Chronic obstructive pulmonary disease, unspecified; E53.8 Deficiency of other specified B group vitamins; G62.9 Polyneuropathy, unspecified; Z79.01 Long term (current) use of anticoagulants
CPT/HCPCS: 70450; 71250; 72125; 80048; 80053; 81003; 81015; 82140; 84439; 84443; 84484; 85025; 85027; 93005; 96374; 96375; 96376; 97112; 97116; 97163; 97167; 97530; 97535; 99285

== ENCOUNTER 2024-09-18 00:27 | Observation (INO) | payer MEDICARE, SELFPAY ==
[2024-09-17] VITALS (15 sets, daily range): BP systolic 139–233; BP diastolic 56–174; PULSE 64–65; BMI 20.6
[2024-09-17 18:51] LABS: Hematocrit 39.3 % (37.0-47.0); Hemoglobin 13.1 g/dL (12.0-16.0); Mean Corp Hgb Conc. 33.3 g/dL (33.0-37.0); Mean Corpuscular Volume 93.6 fL (81.0-99.0); Nucleated Red Blood Cells % 0 %; Platelet Count 235 10^3/uL (130-400); Red Cell Dist. Width 12.6 % (11.5-14.5)
[2024-09-17 19:06] LABS: ALT (SGPT) 23 U/L (0-35); AST (SGOT) 26 U/L (14-36); Albumin 4.7 g/dl (3.5-5.0); Alkaline Phosphatase 58 U/L (38-126); Blood Urea Nitrogen 67 mg/dl (7-17); Calcium 9.3 mg/dl (8.4-10.2); Carbon Dioxide 25 mmol/L (22-30); Chloride 102 mmol/L (98-107); Glucose 95 mg/dl (70-99); Potassium 5.3 mmol/L (3.5-5.1); Sodium 136 mmol/L (135-145); Total Protein 7.1 g/dl (6.3-8.2); eGFR 16.56
[2024-09-17 19:19] LABS: Troponin I < 0.012 ng/ml
--- NOTE | 2024-09-17 20:29 | ED.GENMED ---
History of Present Illness
General
Chief Complaint: Blood Pressure Problem
Source: patient and spouse
Exam Limitations: none
Time Seen by Provider: 09/17/24 19:50
Nursing documentation reviewed up to this point in time: agreed with
History of Present Illness
History of Present Illness:
Patient treated for severe hypertension 1 month ago in the hospital, presents to ED secondary to persistent sensation of lightheadedness when standing up along with elevated blood pressure. Denies loss of consciousness. Denies headache. Denies
blurred vision. Denies loss of sensation or weakness. Denies chest pain or shortness of breath. Denies nausea or vomiting. Denies loss of appetite. Denies inability to sleep.
Past History
Past History
ED Past Medical History: Arrthythmia and HTN
ED Past Surgical History: Cardiac (Pacemaker)
Social History
Tobacco: Non-smoker
Alcohol: None
Drug: None
Personal:
Living: with family
Review of Systems
Review of Systems
Allergies reviewed?: Yes
All Other Systems: ROS reviewed and negative except as documented in HPI and ROS
Constitutional: Reports no symptoms; Denies fever
Respiratory: Reports no symptoms; Denies trouble breathing
Cardiac: Reports no symptoms; Denies chest pain or palpitations
ABD/GI: Reports no symptoms
Musculoskeletal: Reports no symptoms
Skin: Reports no symptoms
Neurological: Reports dizzy
Phy Exam
Physical Exam
Physical Exam:
Physical Exam
General: no apparent distress, not acutely ill. afebrile. hypertensive
Head: nc/at. eomi
Neck: supple. no meningeal signs.
Heart: s1/s2 regular rate and rhythm
Lungs: no acute respiratory distress. clear bilaterally
Abdomen: normal bowel sounds. not tender.
Neuro: alert and oriented x 3. no focal neurological deficits
Skin: no rash
Psychiatric: well kept. interactive and cooperative
Extremities: no edema. no calf tenderness.
Course
Orders/Labs/Results
Orders:
Orders
09/17/24 18:25
Electrocardiogram (*1) Urgent
Reason for Study: Chest Pain
EKG- Treatment ONCE
09/17/24 18:44
Complete Blood Count/With Diff Urgent
Comprehensive Metabolic Panel Urgent
Troponin I Urgent
09/17/24 20:26
Orthostatic VS- Treatment ONCE
HydrALAZINE [Apresoline] 10 mg IV NOW STA
09/17/24 21:36
Labetalol HCl [Trandate] 10 mg IV NOW STA
09/17/24 23:09
Admit/Transfer Patient As Directed
Co-Sign Provider:
Level of Care: Observation services
Assign to:: Telemetry
Physician / Group: Harris
Diagnosis: Uncontrolled Hypertension
Reason for Telemetry: Arrhythmia
Date to Stop Telemetry: 09/20/24
Time to Stop Telemetry: 11:00
PRN Pain Medication Management As Directed
May give lesser potent ordered pain med per pt: Yes
preference::
Protocol:: Medication orders for pain may be administered in a
manner that supports deferring to patient preference
when the pt is:
- Requesting an ordered lesser potent pain medication.
Least to most potent pain medications are defined
as: acetaminophen < NSAID < tramadol < opioids
(morphine, oxycodone, hydromorphone).
- Requesting a lesser dose of the same medication IF
ORDERED.
- Requesting a less intrusive route of administration
if both routes are prescribed by the provider (PO <
IV).
09/17/24 23:10
Code Status As Directed
Resuscitation Status: Full Code
09/18/24 01:34
0.9% Sodium Chloride 1000 ml [Nss] 1,000 ml IV 60 mls/hr
Acetaminophen [Tylenol] 650 mg PO Q4HPRN PRN
HydrALAZINE [Apresoline] 10 mg IV Q6HPRN PRN
09/18/24 01:34
CARDIOLOGY CONSULT Routine
Consulting Provider: Carmelo Melgar
Was physician already notified: No
Reason for consult: Uncontrolled HTN, A-Fib
Consult Notification Routine
Specialty to Notify: Cardiology
Date consulting provider notified: 09/18/24
Time consulting provider notified: 07:18
Notified:: Provider
Activity As Directed
Activity Level: Ambulate
With Assistance
EKG with chest pain [ECG as needed] As Directed
ECG as needed for:: Chest Pain
I/O [Intake/ Output] As Directed
Frequency: Per unit guidelines
Orthostatic Vital Signs As Directed
Orthostatic VS Frequency: BID
Pneumatic Compression Sleeves As Directed
Type: Knee high
Teds [Anti-embolism (FELTON) Hose] As Directed
Type: Knee high
Vital Signs As Directed
Frequency: Per unit guidelines
Weight As Directed
Frequency: Daily
Oxygen Therapy [O2 Therapy] [RESP] Routine
Titrate/Wean O2 to maintain O2 sat greater than (%): 94
PT Consult [Pt Eval And Treat] Routine
Activity Level: Ambulate
With Assistance
DX Deep Vein Thrombosis Video Routine
09/18/24 05:20
Basic Metabolic Panel IN AM
Complete Blood Count/No Diff IN AM
09/18/24 Breakfast
Regular
At Your Request: Full Participation
Does patient need a safe tray?: No
09/18/24 08:00
Amiodarone [Pacerone] 200 mg PO DAILY
Amlodipine [Norvasc] 5 mg PO BID
Apixaban [Eliquis] 2.5 mg PO BID
Dapagliflozin [Farxiga] 5 mg PO DAILY
HydrALAZINE [Apresoline] 25 mg PO BID
Metoprolol Xl [Toprol Xl] 25 mg PO BID
09/18/24 22:00
Gabapentin [Neurontin] 200 mg PO HS
09/20/24 11:00
DC Protocol for Telemetry ONCE
Abnormal Lab Results
09/17/24
18:44
WBC 11.0 H 10^3/uL
(4.8-10.8)
MCH 31.2 H pg
(27.0-31.0)
MPV 10.9 H fL
(7.4-10.4)
Absolute Neuts (auto) 8.8 H 10^3/uL
(1.4-6.5)
Absolute Monos (auto) 0.9 H 10^3/uL
(0.1-0.6)
Neutrophils % 79.8 H %
(42.2-75.2)
Lymphocytes % 11.2 L %
(20.5-51.1)
Potassium 5.3 H mmol/L
(3.5-5.1)
BUN 67 H mg/dl
(7-17)
Creatinine 2.7 H mg/dL
(0.6-1.0)
09/17/24 18:44
09/17/24 18:44
Vital Signs
Initial and Last Documented VS:
Initial Vital Signs
Temp Pulse Resp BP Pulse Ox
97.9 F 68 16 139/86 95
09/17/24 18:31 09/17/24 18:31 09/17/24 18:31 09/17/24 18:31 09/17/24 18:31
Last Documented Vital Signs
Temp Pulse Resp BP Pulse Ox
97.4 F 64 16 157/55 94
09/18/24 19:45 09/18/24 19:45 09/18/24 19:45 09/18/24 19:45 09/18/24 19:45
MDM/Problems Addressed
MDM/Problems Addressed:
History and exam concerning for persistent severe hypertension, not responsive to treatment in ED. In light of patient's symptoms, including continual lightheadedness, patient will be admitted for further evaluation and treatment.
*Pulse Oximetry
SaO2: 98
Oxygen Mode of Delivery: Room air
Patient hypoxic: no
*EKG
Interpreted by ED Provider?: Yes
EKG Intrepretation Date: 09/17/24
Heart Rate: 61
Rate: normal
Rhythm: av sequential
[place]: normal axis
Interval: normal interval
*Critical Care Note
Total Time (30-74mins, 75-104mins- exclusive of procedures): Not Applicable
ED Attending Note
-
Portions of this chart may have been created with voice recognition software.� Occasional wrong word or��sound alike� substitutions may have occurred due to the inherent limitations of voice recognition software.
Discharge Plan
Departure
Patient Disposition: Admit
Date of Disposition: 09/17/24
Time of Disposition: 22:29
Presentation/result/management discussed w/ accepting MD/DO: Hospitalist
Discharge Problem:
Hypertensive urgency
Interventions
Interventions:
*Risk Screen - Suicide Last Done: 09/17/24 18:31
*General Assessment Last Done: 09/17/24 20:02
*Neglect/Abuse Screening Last Done: 09/17/24 18:31
*ED- Fall Risk Assessment Last Done: 09/17/24 20:02
*ED COVID-19 Vaccine History Last Done: 09/17/24 20:02
*Nursing Disposition Last Done: 09/18/24 13:39
ED- Cardiac Assessment Last Done: 09/17/24 20:15
ED- Neurological Assessment Last Done: 09/17/24 20:15
ED- Pulmonary Assessment Last Done: 09/17/24 20:15
Discharge Date and Time
Discharge Date/Time: 09/18/24 13:40
[2024-09-17] MEDS: APRESOLINE 10 MG IV (20:54)
[2024-09-17] MEDS: TRANDATE 10 MG IV (22:18)
--- NOTE | 2024-09-17 23:14 | HPS.HSE ---
Family Physician
-
Family Physician: NOT KNOW UNKNOWN - PT DOES
Chief Complaint
-
High BP
History of Present Illness
Patient is an 89y F with PMH significant for hypertension, A-Fib and CKD who presents to ED complaining of elevated BP. Patient was admitted here 08/10 - 08/18 for hypertensive urgency. Her med regimen was adjusted at that time. She was
discharged to SNF where she states she remained for two days and then returned home. Patient complains of feeling lightheaded / dizzy with standing since her med adjustments. She reports consistent lightheadedness whenever she 'puts my feet down'.
Patient states that she has been compliant with her med regimen, despite these symptoms.
Today her BP at home was > 200 again and she presented to the ED for further evaluation.
Patient notes that she has not been using a walker at home, despite her unsteadiness.
Medical History
Past Medical History
Past Medical History: Reports Other
Additional Past Medical History:
Hypertension
Paroxysmal Atrial Fibrillation
SSS s/p PPM
CKD IV
COPD
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
Past Surgical History: Reports Other
Additional Past Surgical History:
PPM Placement
Hernia Repair
Social History
Tobacco: Non-smoker
Alcohol: None
Drug: None
Family History
Family History: Not pertinent
Allergies / Home Medications
Allergies reflects when Allergies were last updated in [employer].
Home Medications with original date entered in [employer]
Allergy/Medication List:
Allergies
Allergy/AdvReac Type Severity Reaction Status Date / Time
No Known Allergies Allergy Verified 09/17/24 18:31
Home Medications
amiodarone 200 mg tablet 200 mg PO DAILY Arrhythmia 08/10/24
apixaban 2.5 mg tablet (Eliquis) 2.5 mg PO BID Blood Clot Prevention/Tx 08/10/24
cholecalciferol (vitamin D3) 25 mcg (1,000 unit) tablet (Vitamin D3) 25 mcg PO DAILY Supplement 08/10/24
cyanocobalamin (vitamin B-12) 1,000 mcg tablet 1,000 mcg PO DAILY Supplement 08/10/24
dapagliflozin propanediol 5 mg tablet (Farxiga) 5 mg PO DAILY Diabetes 08/10/24
metoprolol succinate 25 mg tablet,extended release 24 hr (Toprol XL) 25 mg PO BID Heart Disease/Condition 08/10/24
hydralazine 25 mg tablet 25 mg PO BID #0 tabs 08/18/24
spironolactone 25 mg tablet 12.5 mg (1/2 x 25 mg) PO DAILY #0 tabs 08/18/24
doxazosin 1 mg tablet 1 mg PO HS 09/17/24
gabapentin 100 mg capsule 100 mg PO HS 09/17/24
tolterodine 4 mg capsule,extended release 24 hr 4 mg PO DAILY 09/17/24
Review of Systems
-
History Source: Patient
A 12 point ROS was completed and negative except as noted: Yes
Constitutional: Reports Fatigue; Denies Fever or Chills
EENT: Denies Sore Throat
Respiratory: Denies Cough or Trouble Breathing (dyspnea with activity / exertion)
Cardiac: Denies Chest Pain or Syncope
Abdomen/GI: Denies Abdominal Pain, Nausea, Vomiting or Diarrhea
: Denies Dysuria, Frequency or Flank Pain
Musculoskeletal: Denies Joint Pain, Muscle Pain or Edema
Neurological: Reports Dizzy; Denies Headache, Weakness or Numbness
Psych: Denies Depression or Anxiety
Physical Exam
Vital Signs
Vital Signs
Temp Pulse Resp BP Pulse Ox
97.9 F 77 19 163/102 97
09/17/24 18:31 09/17/24 22:45 09/17/24 22:45 09/17/24 22:30 09/17/24 22:45
Physical Exam
General: Other (89y F in no acute distress.)
HEENT: Moist mucous membranes and PERRLA
Respiratory: Clear; No Wheezes, Rales or Rhonchi
Cardiac: S1/S2 and Regular Rhythm; No Murmur
GI: Soft, Non Tender, Non Distended and Normal Bowel Sounds
Musculoskeletal: No Clubbing, No Cyanosis and No Edema
Neuro: AO x 3, Nonfocal/grossly intact and Other (Generalized tremor at rest and with intent. No cogwheeling / rigidity appreciated.)
Laboratory Results
-
09/17/24 18:44
09/17/24 18:44
Laboratory Results
Total Bilirubin 0.4 mg/dl (0.2-1.3) 09/17/24 18:44
AST 26 U/L (14-36) 09/17/24 18:44
ALT 23 U/L (0-35) 09/17/24 18:44
Alkaline Phosphatase 58 U/L (38-126) 09/17/24 18:44
Troponin I < 0.012 ng/ml 09/17/24 18:44
Impression/Plan
-
A/P: Patient is an 89y F with PMH significant for hypertension, CKD and A-Fib who presents to ED complaining of uncontrolled BP and orthostatic symptoms.
Uncontrolled Hypertension
- Observe overnight for further evaluation and treatment.
- Adjust BP med regimen for improved control.
- Continue Toprol - consider dose increase. Patient has PPM in place.
- Stop doxazosin to decrease orthostatic symptoms (see below).
- Start amlodipine and titrate as needed for BP control.
- Hold spironolactone for now (see below).
- Cardiology evaluation for additional recommendations / med adjustments to balance A-Fib and BP control.
SAVANNAH on CKD IV
Mild Hyperkalemia
- SCr = 2.7 compared to baseline around 2.0
- Hold spironolactone as noted above.
- IVFs overnight.
- Follow for return to baseline renal function.
Orthostatic Hypotension
- Patient describes symptomatic orthostasis / lightheadedness with standing.
- Stop doxazosin as noted above.
- TEDs stockings.
- PT / OT evaluations.
- ? small dose of midodrine for symptom improvement.
Paroxysmal Atrial Fibrillation
- Stable. A-paced rhythm.
- Continue current medications for now.
- ? decrease Amio / increase Toprol given BP control issues?
- Cardiology eval as noted above.
- Continue Eliquis for stroke risk reduction - ? risk / benefits given orthostasis / fall risks.
DVT Prophylaxis: On Eliquis
Code Status: Full
[2024-09-18] VITALS (9 sets, daily range): BP systolic 109–182; BP diastolic 52–80; BMI 17.6
[2024-09-18] MEDS: NSS 1000 IV ×2 (02:22→22:32)
[2024-09-18 06:27] LABS: Hematocrit 37.6 % (37.0-47.0); Hemoglobin 12.7 g/dL (12.0-16.0); Mean Corp Hgb Conc. 33.8 g/dL (33.0-37.0); Mean Corpuscular Volume 92.2 fL (81.0-99.0); Platelet Count 232 10^3/uL (130-400); Red Cell Dist. Width 12.5 % (11.5-14.5)
[2024-09-18 06:51] LABS: Blood Urea Nitrogen 76 mg/dl (7-17); Calcium 9.3 mg/dl (8.4-10.2); Carbon Dioxide 24 mmol/L (22-30); Chloride 105 mmol/L (98-107); Estimated Creatinine Clearance 14 ml/min; Glucose 91 mg/dl (70-99); Potassium 4.7 mmol/L (3.5-5.1); Sodium 137 mmol/L (135-145); eGFR 23.73
[2024-09-18] MEDS: ELIQUIS 2.5 MG PO ×2 (07:29→22:34)
[2024-09-18] MEDS: NORVASC 5 MG PO ×2 (07:29→22:59)
[2024-09-18] MEDS: PACERONE 200 MG PO (07:29)
[2024-09-18] MEDS: APRESOLINE 25 MG PO ×2 (07:30→22:59)
[2024-09-18] MEDS: TOPROL XL 25 MG PO ×2 (07:30→10:07)
--- NOTE | 2024-09-18 07:57 | CON.CAR ---
Addendum entered and electronically signed by Isaac Moore MD 09/18/24 10:33:
I saw and examined the patient.
The Batch Blender's note was reviewed and I agree with the note.
Comment:
GEN: No distress, awake, Ox3
HEENT: supple, anicteric, mmm
LUNGS: CTA, no wheezes/rales
CV: Reg, S1/S2, 1/6 syst LSB, no gallop
ABD: soft, BS+, NT/ND
EXT: No edema
NEURO: Severe resting tremor
SKIN: No rash
PLan:
89-year-old female with past medical history of paroxysmal atrial fibrillation, permanent pacemaker, chronic heart failure with preserved ejection fraction hypertension, orthostasis, parkinsonism with essential tremor and CKD 3 presents for
continued issues with dizziness, elevated blood pressure readings and fatigue. She was hospitalized in July 2024 for uncontrolled hypertension. At that point hydralazine and doxazosin were titrated and she remained on Toprol and spironolactone.
She went to a [facility] facility where she felt very poorly with fatigue, labile blood pressure, and marked dizziness. She continues to struggle with marked tremors. She denies any chest pains, palpitations. She denies any shortness of
breath.
I suspect with her tremor/parkinsonism she has significant orthostasis with likely some level of autonomic dysfunction. Will stop spironolactone with elevated creatinine and potassium. Would avoid SEEMA/ARB.
With tremors will increase her Toprol to 50 mg p.o. twice daily. Restart amlodipine and continue hydralazine for now. Continue to follow blood pressure.
She does have a 30% atrial fibrillation burden on amiodarone and Eliquis.
I suspect the amiodarone is likely contributing some to her tremors as well. I will discuss with her primary dog or animal sitter but would consider as outpatient AV node ablation and discontinuing of amiodarone.
Check Echo.
Original Note:
Consultation
Consultation Request
Date/Time Consultation Performed: 09/18/24
Requesting Provider: Dr. Iglesias
Performing Provider: Kalie Menon PA-C for Dr. Moore
Reason for Consultation: HTN
Medical History
-
Chief Complaint: HTN
History of Present Illness:
Patient is an 89-year-old female with past medical history of paroxysmal atrial fibrillation on chronic Eliquis and amiodarone, Biotronik pacemaker, chronic heart failure with preserved EF, hypertension, parkinsonism with essential tremor, CKD who
was recently admitted to [facility] 07/2024 for uncontrolled hypertension. Cardiology was not consulted during this hospitalization. Gabapentin was added for her essential tremor. Hydralazine was added, doxazosin was increased and Toprol and
spironolactone were continued. She was discharged to [facility] which she says was a 'bad experience.' She reports with these changes in BP regimen she had significant dizziness prompting her to come back to ER for evaluation. Also reports blood pressures
have been 'on and off' elevated at home. She thinks she is on 'too much medication.' She has significant tremor. She denies feelings of palpitations, CP.
PMH:
Admission to [facility] 07/2024 for hypertensive urgency
Paroxysmal atrial fibrillation
Chronic anticoagulation with Eliquis
Chronic amiodarone therapy
Sick sinus syndrome status post Biotronik pacemaker
Chronic heart failure with preserved EF
Hypertension
Parkinsonism with essential tremor
CKD
COPD
History of TIA 2005
Aortic ectasia
Past Medical History
Past Medical History: Other (in HPI)
Social History
Tobacco: Non-Smoker
Alcohol: None
Personal:
Living: With Family
Allergies / Home Medications
Allergy/AdvReac Type Severity Reaction Status Date / Time
No Known Allergies Allergy Verified 09/17/24 18:31
�Medication �Instructions �Recorded �Confirmed �Type
amiodarone 200 mg tablet 200 mg PO DAILY Arrhythmia 08/10/24 09/17/24 History
apixaban 2.5 mg tablet (Eliquis) 2.5 mg PO BID Blood Clot 08/10/24 09/17/24 History
Prevention/Tx
cholecalciferol (vitamin D3) 25 25 mcg PO DAILY Supplement 08/10/24 09/17/24 History
mcg (1,000 unit) tablet (Vitamin
D3)
cyanocobalamin (vitamin B-12) 1,000 mcg PO DAILY Supplement 08/10/24 09/17/24 History
1,000 mcg tablet
dapagliflozin propanediol 5 mg 5 mg PO DAILY Diabetes 08/10/24 09/17/24 History
tablet (Farxiga)
metoprolol succinate 25 mg 25 mg PO BID Heart 08/10/24 09/17/24 History
tablet,extended release 24 hr Disease/Condition
(Toprol XL)
hydralazine 25 mg tablet 25 mg PO BID #0 tabs 08/18/24 09/17/24 Rx
spironolactone 25 mg tablet 12.5 mg (1/2 x 25 mg) PO DAILY #0 08/18/24 09/17/24 Rx
tabs
doxazosin 1 mg tablet 1 mg PO HS 09/17/24 09/17/24 History
gabapentin 100 mg capsule 100 mg PO HS 09/17/24 09/17/24 History
tolterodine 4 mg capsule,extended 4 mg PO DAILY 09/17/24 09/17/24 History
release 24 hr
Review of Systems
-
History Source: Patient
All other systems: Negative unless noted
Physical Exam
Vital Signs
Temp Pulse Resp BP Pulse Ox
97.9 F 102 22 143/66 96
09/17/24 18:31 09/18/24 02:30 09/18/24 02:30 09/18/24 02:00 09/18/24 03:21
Lab Results
09/18/24 05:20
09/18/24 05:20
Troponin I < 0.012 ng/ml 09/17/24 18:44
Physical Exam
General: No Apparent Distress and Other (significant essential tremor)
HEENT: Normocephalic, Anicteric and Moist Mucous Membranes
Respiratory: Clear and Non Labored Respirations
Cardiac: S1/S2 and Regular Rhythm
GI: Soft, Non Tender, Non Distended and Normal Bowel Sounds
Musculoskeletal: No Clubbing, No Cyanosis and No Edema
Skin: Warm and Dry
Neuro: AO x 3
Impression / Plan
-
Primary Film Developer: Dr. Sood
Assessment:
Presentation with dizziness/lightheadedness
Hyperkalemia
SAVANNAH
HTN urgency
Admission to [facility] 07/2024 for hypertensive urgency
Paroxysmal atrial fibrillation, with 30% burden by device interrogation 09/17/24
Chronic anticoagulation with Eliquis
Chronic amiodarone therapy
Sick sinus syndrome status post DC Biotronik pacemaker
Chronic heart failure with preserved EF
Hypertension
Parkinsonism with essential tremor
CKD
COPD
History of TIA 2005
Aortic ectasia
ECHO 06/03/23 at OSH: EF 70%, mild concentric LVH, MAC, mild to moderate MR, mild AI, moderate TR with PA SP 64 mmHg
Plan:
- Patient with recent hospitalization for hypertensive urgency now presents back to [facility] due to dizziness as well as continued suboptimally controlled blood pressures. She reports feeling poorly
- Noted to have SAVANNAH and hyperkalemia on arrival and spironolactone has been stopped. Farxiga also on hold. Cr improved to 2.0 09/18
- Would also stop doxazosin and avoid alpha blockers
- Agree with restarting Norvasc which she had been on in the past. Continue hydralazine and can uptitrate as needed
- By device interrogation in ER noted to have A-fib burden of approximately 30%. On amiodarone 200 mg daily. Of note she had previously been on Multaq, but this was switched back to amiodarone due to inefficacy. Unfortunately amiodarone does make
her tremor worse. Will discuss potential alternative antiarrhythmic drug therapy. Apaced rhythm by EKG, but by review of telemetry appears to have paroxysms of afib
- Will increase Toprol to 50 mg twice daily
- If remains symptomatic in A-fib, and refractory to med adjustments, could consider for AVJ ablation as has pacemaker in place
- Continue Eliquis
- Check orthostatic vital signs. May need to allow for some degree of permissive hypertension to prevent orthostasis/falls
- Last echo from outside hospital in 2023 as above. Consider repeating
- Check TSH
- She also relays that recent increase in gabapentin she feels is contributing to some of her symptoms, Defer adjustment to primary service
- PT/OT
- d/w nursing
Data Reviewed
-
EKG: Tracing Personally Visualized and interpreted
Medical Tests (Nuc Med, Echo etc): Report Reviewed by me
Labs: Labs Reviewed by me
Old Records: Reviewed
[2024-09-18 08:19] LABS: Urine Character Clear (Clear)
[2024-09-18 08:20] LABS: COVID-19 Antigen Negative (Negative)
[2024-09-18 08:30] LABS: Urine Red Blood Cell 0-2 /HPF (0-2)
[2024-09-18 08:31] LABS: Urine White Cell 0-2 /HPF (0-5)
[2024-09-18] MEDS: FARXIGA 5 MG PO (10:03)
--- NOTE | 2024-09-18 12:03 | W.PN.HOSP.TC ---
Today's Communication/Plan
-
see PN
Assessment / Plan
Assessment / Plan
89yo F with PMHX of HTN, Afib on ELiquis, CAD, s/p PPM, HFpEF, parkinsonism with essential tremor and recent admisison for HTN urgency came with same. Patient also complained that after her previous discharge she started to feel frequently dizzy on
ambulation. in ED - on admisison found orthostatic drop in BP
A/P:
#HTN Urgency
#Dysautonomia, most liekly /2 parkinsonism
#Paroxysmal Afib
Abdominal binder on ambulation
Cardio to adjust meds: increase Toprol, restart Norvasc and cont hydralazine. Stop spironolactone
Might need AV ablation as outpatient since amiodarone can contribute to worsening of tremors
Echo
PPM showing 30% burgen Afib
PT/OT
TSH pending
#Essential tremor with parkinsonism
Previously evaluated by neurology: advised Gabapendtine and outpatient follow up
Ephasized need to scheduled neuro follow up
#Mild leukocytosis
no concern for UTI on UA
no respiratory symptoms and clean chest XR
COVID-19 and Influenza neg
follow clinically
#SAVANNAH on CKD stage 4
resolved
stop diuretics
DVT ppx on elqiuis
Full code
I have spent at least 51min reviewing chart, test results, communication with consultants and providing direct patient care
Anticipated Discharge: 24 - 48 hours
Subjective/Interval History
-
Date of Service: September 18, 2024
Objective Data
-
Labs:
Laboratory Results
09/18/24
05:20
WBC 11.7 H
Hgb 12.7
Hct 37.6
Plt Count 232
Sodium 137
Potassium 4.7
Chloride 105
Carbon Dioxide 24
BUN 76 H
Creatinine 2.0 H
Glucose 91
Calcium 9.3
Vital Signs:
Vital Signs
Temp Pulse Resp BP Pulse Ox
97.9 F 102 22 143/66 96
09/17/24 18:31 09/18/24 02:30 09/18/24 02:30 09/18/24 02:00 09/18/24 03:21
I&O
09/17/24 09/18/24 09/19/24
06:59 06:59 06:59
Intake Total 540 / 540
Output Total 450 / 450
Balance 90 / 90
Review of Systems
-
History Source: Patient
All other systems: Reviewed and negative
Physical Exam
-
General: No Apparent Distress
HEENT: Normocephalic
Cardiac: Regular Rhythm
GI: Soft, Nontender and Nondistended
Musculoskeletal: No Clubbing, No Cyanosis and No Edema
Psych: Calm
--- NOTE | 2024-09-18 12:12 | CM ---
Patient seen at bedside in ED. Patient states that she lives with her and daughter in a 2 story home. Patient PCP is Dr. Baig and she uses the [facility] on [address], [place]. Patient states that she has been going down stairs on her bottom
recently. Patient has a walker and a cane at home. Patient has a tremor and was unable to sign OBS/SIDDIQUI form. CM left VM for patient daughter who may be on vacation per patient as well as patient . OBS/SIDDIQUI form reviewed with patient and
copies left in room. Patient uncertain when family would be visiting. CM will continue to follow for discharge planning needs.
Plan; home with VN vs SNF pending medical treatment plan
--- NOTE | 2024-09-18 15:17 | PTCARENOTE ---
pt presents from ED via stretcher. pt is AAO*3, Vss, room air. pt denies any pain. pt is oriented to the room. call romero within the reach. bed alarm plugged in. plan of care ongoing.
[2024-09-18] MEDS: NORVASC PO (22:33)
[2024-09-18] MEDS: APRESOLINE PO (22:33)
[2024-09-18] MEDS: NEURONTIN 200 MG PO (22:34)
[2024-09-18] MEDS: TOPROL XL 50 MG PO (22:58)
[2024-09-19] VITALS (10 sets, daily range): BP systolic 141–207; BP diastolic 52–75; PULSE 61–69; BMI 17.8
[2024-09-19] MEDS: PACERONE 200 MG PO (06:14)
[2024-09-19] MEDS: APRESOLINE 25 MG PO (06:14)
[2024-09-19] MEDS: TOPROL XL 50 MG PO ×2 (06:15→22:16)
[2024-09-19] MEDS: NORVASC 5 MG PO ×2 (06:15→22:15)
[2024-09-19] MEDS: FARXIGA 5 MG PO (08:18)
[2024-09-19] MEDS: ELIQUIS 2.5 MG PO ×2 (08:18→22:15)
[2024-09-19] MEDS: APRESOLINE 10 MG IV ×2 (08:58→16:27)
[2024-09-19 09:30] LABS: Hematocrit 40.9 % (37.0-47.0); Hemoglobin 13.3 g/dL (12.0-16.0); Mean Corp Hgb Conc. 32.5 g/dL (33.0-37.0); Mean Corpuscular Volume 94.7 fL (81.0-99.0); Nucleated Red Blood Cells % 0 %; Platelet Count 224 10^3/uL (130-400); Red Cell Dist. Width 12.7 % (11.5-14.5)
--- NOTE | 2024-09-19 09:40 | W.PN.CARDCBS ---
Today's Communication / Plan
-
Echo with preserved ejection fraction and mild to moderate valvular disease.
Continue Toprol 50 mg p.o. twice daily, Norvasc 5 mg p.o. twice daily, and increase hydralazine to 50 mg p.o. 3 times daily.
Will likely need to allow for some permissive hypertension with her orthostasis and parkinsonian symptoms.
Remains a paced. Will continue amiodarone for now.
As outpatient would consider AV node ablation if tremors continue to be a major issue for her and then can stop amiodarone.
Impression / Plan
-
Primary Drafter Electronic: Dr. Sood
Assessment:
Presentation with dizziness/lightheadedness
Hyperkalemia
SAVANNAH
HTN urgency
Admission to [facility] 07/2024 for hypertensive urgency
Paroxysmal atrial fibrillation, with 30% burden by device interrogation 09/17/24
Chronic anticoagulation with Eliquis
Chronic amiodarone therapy
Sick sinus syndrome status post DC Biotronik pacemaker
Chronic heart failure with preserved EF
Hypertension
Parkinsonism with essential tremor
CKD
COPD
History of TIA 2005
Aortic ectasia
ECHO 06/03/23 at OSH: EF 70%, mild concentric LVH, MAC, mild to moderate MR, mild AI, moderate TR with PA SP 64 mmHg
Echo 09/18/24: EF 65%, mild-mod MR, mild-mod AI, PA 31
Plan:
- Patient with recent hospitalization for hypertensive urgency now presents back to [facility] due to dizziness as well as continued suboptimally controlled blood pressures. She reports feeling poorly
- Noted to have SAVANNAH and hyperkalemia on arrival and spironolactone has been stopped. Farxiga also on hold. Cr improved to 2.0 09/18
- Would also stop doxazosin and avoid alpha blockers
- By device interrogation in ER noted to have A-fib burden of approximately 30%. On amiodarone 200 mg daily. Of note she had previously been on Multaq, but this was switched back to amiodarone due to inefficacy. Unfortunately amiodarone does make
her tremor worse. Will discuss potential alternative antiarrhythmic drug therapy. Apaced rhythm by EKG, but by review of telemetry appears to have paroxysms of afib
-Continue Toprol 50 mg p.o. twice daily. Continue amlodipine 5 mg p.o. twice daily. Increase hydralazine to 50 mg p.o. 3 times daily.
- If remains symptomatic in A-fib, and refractory to med adjustments, could consider for AVJ ablation as has pacemaker in place
- Continue Eliquis
- Check orthostatic vital signs. May need to allow for some degree of permissive hypertension to prevent orthostasis/falls
- Last echo from outside hospital in 2023 as above. Consider repeating
- Check TSH
- She also relays that recent increase in gabapentin she feels is contributing to some of her symptoms, Defer adjustment to primary service
- PT/OT
- d/w nursing
Progress Note - Drafter Electronic
Subjective
Date of Service: September 19, 2024
She feels well but blood pressure remains elevated. Denies dizziness.
Objective
Labs:
09/19/24 09:00
Labs
Hgb 13.3 g/dL (12.0-16.0) 09/19/24 09:00
Hct 40.9 % (37.0-47.0) 09/19/24 09:00
Plt Count 224 10^3/uL (130-400) 09/19/24 09:00
Sodium 137 mmol/L (135-145) 09/18/24 05:20
Potassium 4.7 mmol/L (3.5-5.1) 09/18/24 05:20
BUN 76 mg/dl (7-17) H 09/18/24 05:20
Creatinine 2.0 mg/dL (0.6-1.0) H 09/18/24 05:20
Glucose 91 mg/dl (70-99) 09/18/24 05:20
Troponins
09/17/24
18:44
Troponin I < 0.012
Vital Signs and I&O:
Vital Signs
Temp Pulse Resp BP Pulse Ox
98.2 F 61 16 197/65 98
09/19/24 07:00 09/19/24 08:58 09/19/24 07:00 09/19/24 08:58 09/19/24 07:00
Vital Signs
Temp Pulse Resp BP Pulse Ox
98.2 F 61 16 197/65 98
09/19/24 07:00 09/19/24 08:58 09/19/24 07:00 09/19/24 08:58 09/19/24 07:00
Intake & Output
09/17/24 09/18/24 09/19/24 09/20/24
06:59 06:59 06:59 06:59
Intake Total 540 / 540
Output Total 450 / 450
Balance 90 / 90
Physical Exam
Physical Exam
GEN: No distress, awake, Ox3
HEENT: supple, anicteric, mmm
LUNGS: CTA, no wheezes/rales
CV: Reg, S1/S2, 1/6 syst LSB, no murmur
ABD: soft, BS+, NT/ND
EXT: No edema
NEURO: Gross non-focal, + tremor
SKIN: No rash
[2024-09-19 09:57] LABS: ALT (SGPT) 21 U/L (0-35); AST (SGOT) 27 U/L (14-36); Albumin 4.3 g/dl (3.5-5.0); Alkaline Phosphatase 58 U/L (38-126); Blood Urea Nitrogen 51 mg/dl (7-17); Calcium 9.2 mg/dl (8.4-10.2); Carbon Dioxide 25 mmol/L (22-30); Chloride 109 mmol/L (98-107); Estimated Creatinine Clearance 14 ml/min; Glucose 101 mg/dl (70-99); Potassium 4.3 mmol/L (3.5-5.1); Sodium 141 mmol/L (135-145); Total Protein 6.8 g/dl (6.3-8.2); eGFR 26.93
--- NOTE | 2024-09-19 11:07 | W.PN.HOSP.TC ---
Today's Communication/Plan
-
Increased hydralazine
Assessment / Plan
Assessment / Plan
89yo F with PMHX of HTN, Afib on ELiquis, CAD, s/p PPM, HFpEF, parkinsonism with essential tremor and recent admisison for HTN urgency came with same. Patient also complained that after her previous discharge she started to feel frequently dizzy on
ambulation. in ED - on admisison found orthostatic drop in BP
A/P:
#HTN Urgency
#Dysautonomia, most likely 2/2 parkinsonism
#Paroxysmal Afib
Abdominal binder on ambulation - discussed with patient PCP
Revcently stopped clonidine as outpatient
Cardio to adjust meds: increase Toprol, restart Norvasc and cont hydralazine. Stop spironolactone. Patient to follow
Might need AV ablation as outpatient since amiodarone can contribute to worsening of tremors
Echo: EF 65%, stage 1 diastolic, moderate MR, moderate AR, mild-moderate pulmonary HTN
PPM showing 30% burden Afib
PT/OT
TSH WNL
#Essential tremor with parkinsonism
Previously evaluated by neurology: advised Gabapentin and outpatient follow up. Patient followed by neurologist, had DARYN recently
#Mild leukocytosis
no concern for UTI on UA
no respiratory symptoms and clean chest XR
COVID-19 and Influenza neg
follow clinically
#SAVANNAH on CKD stage 4
resolved
stop diuretics
DVT ppx on elqiuis
Full code
I have spent at least 51min reviewing chart, test results, communication with consultants and providing direct patient care
Anticipated Discharge: 24 - 48 hours
Subjective/Interval History
-
Date of Service: September 19, 2024
Objective Data
-
Labs:
Laboratory Results
09/19/24
09:00
WBC 10.7
Hgb 13.3
Hct 40.9
Plt Count 224
Sodium 141
Potassium 4.3
Chloride 109 H
Carbon Dioxide 25
BUN 51 H
Creatinine 1.8 H
Glucose 101 H
Calcium 9.2
Total Bilirubin 0.4
AST 27
ALT 21
Alkaline Phosphatase 58
Vital Signs:
Vital Signs
Temp Pulse Resp BP Pulse Ox
98.2 F 75 16 168/63 98
09/19/24 07:00 09/19/24 10:24 09/19/24 07:00 09/19/24 10:24 09/19/24 10:24
I&O
09/18/24 09/19/24 09/20/24
06:59 06:59 06:59
Intake Total 540 / 540
Output Total 450 / 450
Balance 90 / 90
Review of Systems
-
History Source: Patient
All other systems: Reviewed and negative
Physical Exam
-
General: No Apparent Distress
HEENT: Normocephalic
Cardiac: Regular Rhythm
Neuro: Awake, Alert, Oriented, AO x 3 and Tremors
Psych: Calm
[2024-09-19] MEDS: APRESOLINE 50 MG PO ×2 (12:43→22:15)
[2024-09-19] MEDS: NEURONTIN 200 MG PO (22:16)
[2024-09-19] MEDS: ZOFRAN 4 MG IV (22:20)
[2024-09-20 03:45] VITALS: BP 151/59
[2024-09-20 06:00] VITALS: BMI 18.0
[2024-09-20 07:01] LABS: Hematocrit 37.4 % (37.0-47.0); Hemoglobin 12.2 g/dL (12.0-16.0); Mean Corp Hgb Conc. 32.6 g/dL (33.0-37.0); Mean Corpuscular Volume 93.3 fL (81.0-99.0); Nucleated Red Blood Cells % 0 %; Platelet Count 235 10^3/uL (130-400); Red Cell Dist. Width 12.6 % (11.5-14.5)
[2024-09-20 07:26] LABS: ALT (SGPT) 18 U/L (0-35); AST (SGOT) 22 U/L (14-36); Albumin 3.6 g/dl (3.5-5.0); Alkaline Phosphatase 52 U/L (38-126); Blood Urea Nitrogen 43 mg/dl (7-17); Calcium 9.2 mg/dl (8.4-10.2); Carbon Dioxide 25 mmol/L (22-30); Chloride 106 mmol/L (98-107); Estimated Creatinine Clearance 15 ml/min; Glucose 95 mg/dl (70-99); Potassium 4.8 mmol/L (3.5-5.1); Sodium 137 mmol/L (135-145); Total Protein 5.8 g/dl (6.3-8.2); eGFR 26.93
[2024-09-20 07:32] VITALS: BP 122/56; BP 136/55; BP 182/63; PULSE 61; PULSE 68
[2024-09-20] MEDS: ELIQUIS 2.5 MG PO ×2 (08:15→20:08)
[2024-09-20] MEDS: NORVASC 5 MG PO ×2 (08:19→20:08)
[2024-09-20] MEDS: APRESOLINE 50 MG PO ×3 (08:21→23:14)
[2024-09-20] MEDS: PACERONE 200 MG PO (08:21)
[2024-09-20] MEDS: FARXIGA 5 MG PO (08:21)
[2024-09-20] MEDS: TOPROL XL 50 MG PO ×2 (08:22→20:08)
--- NOTE | 2024-09-20 11:05 | W.PN.CARDCBS ---
Today's Communication / Plan
-
Blood pressure still on the high side. Will increase hydralazine to 75 mg p.o. 3 times daily.
Continue amlodipine and Toprol.
May need to except some permissive hypertension to avoid dizziness. Goal blood pressure would be in the 140-160 systolic range.
Okay to continue amiodarone for now. Continue Eliquis
Would eventually consider AV node ablation as outpatient.
Creatinine continues to improve and down to 1.8. Continue to avoid spironolactone.
Impression / Plan
-
Primary Cleaning Supervisor: Dr. Sood
Assessment:
Presentation with dizziness/lightheadedness
Hyperkalemia
SAVANNAH
HTN urgency
Admission to [facility] 07/2024 for hypertensive urgency
Paroxysmal atrial fibrillation, with 30% burden by device interrogation 09/17/24
Chronic anticoagulation with Eliquis
Chronic amiodarone therapy
Sick sinus syndrome status post DC [employer] pacemaker
Chronic heart failure with preserved EF
Hypertension
Parkinsonism with essential tremor
CKD
COPD
History of TIA 2005
Aortic ectasia
ECHO 06/03/23 at OSH: EF 70%, mild concentric LVH, MAC, mild to moderate MR, mild AI, moderate TR with PA SP 64 mmHg
Echo 09/18/24: EF 65%, mild-mod MR, mild-mod AI, PA 31
Plan:
- Patient with recent hospitalization for hypertensive urgency now presents back to [facility] due to dizziness as well as continued suboptimally controlled blood pressures. She reports feeling poorly
- Noted to have SAVANNAH and hyperkalemia on arrival and spironolactone has been stopped. Farxiga also on hold. Cr improved to 1.8.
- Would also stop doxazosin and avoid alpha blockers
- By device interrogation in ER noted to have A-fib burden of approximately 30%. On amiodarone 200 mg daily. Of note she had previously been on Multaq, but this was switched back to amiodarone due to inefficacy. Unfortunately amiodarone does make
her tremor worse. Will discuss potential alternative antiarrhythmic drug therapy. Apaced rhythm by EKG, but by review of telemetry appears to have paroxysms of afib
-Continue Toprol 50 mg p.o. twice daily. Continue amlodipine 5 mg p.o. twice daily. Increase hydralazine to 75 mg p.o. 3 times daily.
- If remains symptomatic in A-fib, and refractory to med adjustments, could consider for AVJ ablation as has pacemaker in place
- Continue Eliquis
- Check orthostatic vital signs. May need to allow for some degree of permissive hypertension to prevent orthostasis/falls
-Echo with stable LVEF and mild to moderate valve disease.
- TSH nl
- She also relays that recent increase in gabapentin she feels is contributing to some of her symptoms, Defer adjustment to primary service
- PT/OT
Progress Note - Cleaning Supervisor
Subjective
Date of Service: September 20, 2024
Patient resting in bed. She denies complaints of chest pains or shortness of breath.
Objective
Labs:
09/20/24 06:28
09/20/24 06:28
Labs
Hgb 12.2 g/dL (12.0-16.0) 09/20/24 06:28
Hct 37.4 % (37.0-47.0) 09/20/24 06:28
Plt Count 235 10^3/uL (130-400) 09/20/24 06:28
Sodium 137 mmol/L (135-145) 09/20/24 06:28
Potassium 4.8 mmol/L (3.5-5.1) 09/20/24 06:28
BUN 43 mg/dl (7-17) H 09/20/24 06:28
Creatinine 1.8 mg/dL (0.6-1.0) H 09/20/24 06:28
Glucose 95 mg/dl (70-99) 09/20/24 06:28
Troponins
09/17/24
18:44
Troponin I < 0.012
Vital Signs and I&O:
Vital Signs
Temp Pulse Resp BP Pulse Ox
98.3 F 61 18 182/63 93
09/20/24 07:32 09/20/24 08:19 09/20/24 07:32 09/20/24 08:19 09/20/24 08:30
Vital Signs
Temp Pulse Resp BP Pulse Ox
98.3 F 61 18 182/63 93
09/20/24 07:32 09/20/24 08:19 09/20/24 07:32 09/20/24 08:19 09/20/24 08:30
Intake & Output
09/18/24 09/19/24 09/20/24 09/21/24
06:59 06:59 06:59 06:59
Intake Total 540 / 540 680 / 680
Output Total 450 / 450
Balance 90 / 90 680 / 680
Physical Exam
Physical Exam
GEN: No distress, awake, Ox3
HEENT: supple, anicteric, mmm
LUNGS: CTA, no wheezes/rales
CV: Reg, S1/S2, 1/6 syst LSB, no gallop
ABD: soft, BS+, NT/ND
EXT: No edema
NEURO: Resting tremor
SKIN: No rash
--- NOTE | 2024-09-20 11:33 | W.PN.HOSP.TC ---
Today's Communication/Plan
-
Goal blood pressure would be in the 140-160 systolic range - noted hydralazine increased to 75mg TID
Assessment / Plan
Assessment / Plan
89yo F with PMHX of HTN, Afib on ELiquis, CAD, s/p PPM, HFpEF, parkinsonism with essential tremor and recent admisison for HTN urgency came with same. Patient also complained that after her previous discharge she started to feel frequently dizzy on
ambulation. in ED - on admisison found orthostatic drop in BP
A/P:
#HTN Urgency
#Dysautonomia, most likely 2/2 parkinsonism
#Paroxysmal Afib
Abdominal binder on ambulation - discussed with patient PCP
Revcently stopped clonidine as outpatient
Cardio to adjust meds: increase Toprol, restart Norvasc and cont hydralazine. Stop spironolactone. Goal blood pressure would be in the 140-160 systolic range
Might need AV ablation as outpatient since amiodarone can contribute to worsening of tremors
Echo: EF 65%, stage 1 diastolic, moderate MR, moderate AR, mild-moderate pulmonary HTN
PPM showing 30% burden Afib
PT/OT
TSH WNL
#Essential tremor with parkinsonism
Previously evaluated by neurology: advised Gabapentin and outpatient follow up. Patient followed by neurologist, had DARYN recently
#Mild leukocytosis
no concern for UTI on UA
no respiratory symptoms and clean chest XR
COVID-19 and Influenza neg
follow clinically
#SAVANNAH on CKD stage 4
resolved
stop diuretics
DVT ppx on elqiuis
Full code
I have spent at least 51min reviewing chart, test results, communication with consultants and providing direct patient care
Anticipated Discharge: 24 - 48 hours
Subjective/Interval History
-
Date of Service: September 20, 2024
Objective Data
-
Labs:
Laboratory Results
09/20/24
06:28
WBC 10.1
Hgb 12.2
Hct 37.4
Plt Count 235
Sodium 137
Potassium 4.8
Chloride 106
Carbon Dioxide 25
BUN 43 H
Creatinine 1.8 H
Glucose 95
Calcium 9.2
Total Bilirubin 0.4
AST 22
ALT 18
Alkaline Phosphatase 52
Vital Signs:
Vital Signs
Temp Pulse Resp BP Pulse Ox
98.3 F 61 18 182/63 93
09/20/24 07:32 09/20/24 08:19 09/20/24 07:32 09/20/24 08:19 09/20/24 08:30
I&O
09/19/24 09/20/24 09/21/24
06:59 06:59 06:59
Intake Total 680 / 680
Balance 680 / 680
Review of Systems
-
History Source: Patient
All other systems: Reviewed and negative
Physical Exam
-
General: No Apparent Distress
HEENT: Normocephalic
Cardiac: Irregular Rhythm
GI: Soft, Nontender and Nondistended
Musculoskeletal: No Clubbing, No Cyanosis and No Edema
Psych: Calm
[2024-09-20 11:59] VITALS: BP 160/49
[2024-09-20 15:37] VITALS: BP 167/56
[2024-09-20] MEDS: APRESOLINE 25 MG PO ×2 (17:03→23:15)
[2024-09-20 19:50] VITALS: BP 173/72
[2024-09-20] MEDS: NEURONTIN 200 MG PO (23:15)
[2024-09-20 23:33] VITALS: BP 92/66
[2024-09-21] VITALS (8 sets, daily range): BP systolic 147–180; BP diastolic 53–67; PULSE 60–64; O2SAT 97; BMI 18.0
[2024-09-21 08:26] LABS: Blood Urea Nitrogen 42 mg/dl (7-17); Calcium 9.0 mg/dl (8.4-10.2); Carbon Dioxide 26 mmol/L (22-30); Chloride 106 mmol/L (98-107); Estimated Creatinine Clearance 13 ml/min; Glucose 96 mg/dl (70-99); Potassium 4.5 mmol/L (3.5-5.1); Sodium 136 mmol/L (135-145); eGFR 23.73
[2024-09-21] MEDS: APRESOLINE 50 MG PO ×3 (09:46→23:55)
[2024-09-21] MEDS: NORVASC 5 MG PO ×2 (09:46→22:36)
[2024-09-21] MEDS: ELIQUIS 2.5 MG PO ×2 (09:46→22:35)
[2024-09-21] MEDS: PACERONE 200 MG PO (09:47)
[2024-09-21] MEDS: TOPROL XL 50 MG PO ×2 (09:47→22:37)
[2024-09-21] MEDS: FARXIGA 5 MG PO (09:47)
[2024-09-21] MEDS: APRESOLINE 25 MG PO ×3 (09:47→23:55)
--- NOTE | 2024-09-21 10:19 | W.PN.CARDCBS ---
Addendum entered and electronically signed by Naldo Cordon MD 09/21/24 12:26:
89-year-old woman [employer] pacemaker, paroxysmal A-fib 30% burden, HFpEF, Parkinson's, tremor, CKD 3, with hyperkalemia on spironolactone admitted with hypertensive urgency. She is also markedly orthostatic. Similar hospitalization in July 2024,
was on doxazosin
PMH: Parkinson's, PAF, [employer] pacer, HFpEF, orthostasis, hypertension, tremor, CKD 3 with hyperkalemia
Current meds: Amiodarone 200-day, apixaban 2.5 mg twice daily, Farxiga 5 mg a day, gabapentin 200 mg at bedtime, amlodipine 5 mg daily, metoprolol ER 50 twice daily, hydralazine 75 3 times daily
153/67, Supine blood pressure 182/63 as of yesterday to 122/55 standing, pulse 60 pleasant, predominantly with head tremor, lungs are clear, soft systolic murmur at apex, JVD okay abdomen benign extremities without edema, neuro nonfocal.
BUN/creatinine 42 and 2.0, potassium 4.5, creatinine had been 1.8, on admission creatinine was 2.7 echo: Small LV, EF 65%, mild to moderate MR, mild to moderate AI, pulmonary artery pressure 31
Impression:
Baseline hypertension with severe orthostasis
CKD stage IV with SAVANNAH
Paroxysmal atrial fibrillation, 30% burden on amiodarone
Parkinson's
Biotronik pacemaker
Recent admission for hypertensive urgency
Other diagnoses as below per Veronica Hutton. Reviewed in detail and agree, unless otherwise specified.
Plan:
Difficult situation - she continues with severe supine hypertension and simultaneously has severe orthostasis with a 60 mmHg drop with standing.
Her pacer is programmed at 60 and we will increase in heart rate to 70 in the hopes of helping in regards regards to orthostasis.
At present I am reluctant to uptitrate antihypertensive regimen given her orthostasis
She has a tremor and discontinuation of amiodarone has been considered. We will reassess amiodarone as outpatient, continue for now. Currently with 30% atrial fibrillation burden, this would likely rise if amiodarone were discontinued.
For her orthostasis recommend thigh-high compression stockings. She should probably sleep with a wedge to elevate her head and avoid supine hypertension.
Await echocardiogram.
From our standpoint, okay to begin discharge planning.
Original Note:
Today's Communication / Plan
-
Add TEDS thigh high stockings
Keep HOB at 30 degrees
Contacted [employer] rep to increase base pacing rate to 70
Impression / Plan
-
Primary Social Media Executive: Dr. Sood
Assessment:
Presentation with dizziness/lightheadedness 09/17/2024
Hyperkalemia
SAVANNAH
HTN urgency
Admission to [facility] for hypertensive urgency 08/10/2024 until 08/18/2024
Paroxysmal atrial fibrillation
30% burden by device interrogation 09/17/24
Chronic OAC with Eliquis
Chronic amiodarone therapy
Sick sinus syndrome status post DC [employer]ik pacemaker
Chronic HFpEF
Hypertension
Parkinsonism with essential tremor
CKD
COPD
History of TIA 2005
Aortic ectasia
ECHO 06/03/23 at OSH: EF 70%, mild concentric LVH, MAC, mild to moderate MR, mild AI, moderate TR with PA SP 64 mmHg
Echo 09/18/24: EF 65%, mild-mod MR, mild-mod AI, PA 31
Plan:
-Patient with recent hospitalization for hypertensive urgency now presents back to [facility] due to dizziness as well as continued suboptimally controlled blood pressures. She reports feeling poorly
-Last set of orthostatic VS was 09/20/2024, supine BP 182/63 with HR 61, sitting BP 136/55 with HR 68 and standing BP 122/56 with HR 61. Patient was not lightheaded and appeared to be asymptomatic. Patient is not wearing abdominal binder, also not
wearing thigh-high teds.
-Thigh-high teds ordered by ar 09/13/2024
-Dizziness felt to be related in part to orthostasis and possibly also HR response. Patient within 30% A-fib burden on device check 09/17/2024 and seems to feel better when her HR is greater than 70. When patient is in SR her HR is in the 60s. I
have reached out to the [employer] registered representative to see if they can visit patient in the hospital and increase her baseline HR to 70, 09/13/2024.
-As noted, A-fib burden at 30%. Outpatient dose of amiodarone 200 mg daily has been continued, there was some concern that this may be contributing to tremor, this could also be related to Parkinson's disease. Of note patient was previously on
Multaq, but this was switched back to amiodarone due to relative ineffectiveness. Plan for now is to continue with amiodarone.
-Patient has PPM in place so there is always the option of AVJ ablation
-Outpatient dose of Toprol-XL increased to 50 mg BID this admission and all doses have been tolerated thus far
-Some degree of permissive HTN to prevent orthostasis and falls. Due to the level of HTN at times would not add midodrine. Also placed an order to keep HOB at 30 degrees to avoid supine HTN.
-Outpatient dose of doxazosin 1 mg HS has been stopped
-Outpatient dose of hydralazine increased to 75 mg TID this admission
-Outpatient dose of spironolactone stopped on admission due to hyperkalemia
-New to amlodipine 5 mg BID and all doses tolerated thus far
-Outpatient dose of Farxiga 5 mg daily was initially held, but now resumed
Progress Note - Social Media Executive
Subjective
Date of Service: September 21, 2024
Less dizzy, thinks she is doing well with PT
Objective
Labs:
09/20/24 06:28
09/21/24 07:26
Labs
Hgb 12.2 g/dL (12.0-16.0) 09/20/24 06:28
Hct 37.4 % (37.0-47.0) 09/20/24 06:28
Plt Count 235 10^3/uL (130-400) 09/20/24 06:28
Sodium 136 mmol/L (135-145) 09/21/24 07:26
Potassium 4.5 mmol/L (3.5-5.1) 09/21/24 07:26
BUN 42 mg/dl (7-17) H 09/21/24 07:26
Creatinine 2.0 mg/dL (0.6-1.0) H 09/21/24 07:26
Glucose 96 mg/dl (70-99) 09/21/24 07:26
Vital Signs and I&O:
Vital Signs
Temp Pulse Resp BP Pulse Ox
98.7 F 74 16 153/67 95
09/21/24 06:57 09/21/24 09:46 09/21/24 06:57 09/21/24 09:46 09/21/24 06:57
Vital Signs
Temp Pulse Resp BP Pulse Ox
98.7 F 74 16 153/67 95
09/21/24 06:57 09/21/24 09:46 09/21/24 06:57 09/21/24 09:46 09/21/24 06:57
Intake & Output
09/19/24 09/20/24 09/21/24 09/22/24
06:59 06:59 06:59 06:59
Intake Total 680 / 680 920 / 920
Balance 680 / 680 920 / 920
Physical Exam
Physical Exam
GEN: AAOx3
LUNGS: RA. No wheeze
CV: A paced on tele
--- NOTE | 2024-09-21 12:54 | W.PN.HOSP.TC ---
Today's Communication/Plan
-
monitor vitals
see plan
TEDS
Monitor blood pressure closely
Echocardiogram per cardiology
Discharge planning
Called daughter, left voice
Assessment / Plan
Assessment / Plan
89yo F with PMHX of HTN, Afib on ELiquis, CAD, s/p PPM, HFpEF, parkinsonism with essential tremor and recent admisison for HTN urgency came with same. Patient also complained that after her previous discharge she started to feel frequently dizzy on
ambulation. in ED - on admisison found orthostatic drop in BP
A/P:
#HTN Urgency
#Dysautonomia, most likely 2/2 parkinsonism
#Paroxysmal Afib
Abdominal binder on ambulation - discussed with patient PCP
Revcently stopped clonidine as outpatient
Cardio to adjust meds: increase Toprol, restart Norvasc and cont hydralazine. Stop spironolactone. Goal blood pressure would be in the 140-160 systolic range
Might need AV ablation as outpatient since amiodarone can contribute to worsening of tremors
Echo: EF 65%, stage 1 diastolic, moderate MR, moderate AR, mild-moderate pulmonary HTN
PPM showing 30% burden Afib
PT/OT
TSH WNL
Patient does have orthostasis with standing. Would likely need to accept some degree of higher blood pressure off. Echocardiogram per cardiology. Discharge planning
#Essential tremor with parkinsonism
Previously evaluated by neurology: advised Gabapentin and outpatient follow up. Patient followed by neurologist, had DARYN recently
#Mild leukocytosis
no concern for UTI on UA
no respiratory symptoms and clean chest XR
COVID-19 and Influenza neg
follow clinically
#SAVANNAH on CKD stage 4
resolved
stop diuretics
DVT ppx on elqiuis
Full code
General: No Apparent Distress
HEENT: Normocephalic
Cardiac: Irregular Rhythm
GI: Soft, Nontender and Nondistended
Musculoskeletal: No Edema
Psych: Calm
Anticipated Discharge: Within 24 hours
Subjective/Interval History
-
Date of Service: September 21, 2024
denies pain
Objective Data
-
Labs:
Laboratory Results
09/21/24
07:26
Sodium 136
Potassium 4.5
Chloride 106
Carbon Dioxide 26
BUN 42 H
Creatinine 2.0 H
Glucose 96
Calcium 9.0
Vital Signs:
Vital Signs
Temp Pulse Resp BP Pulse Ox
98.7 F 74 16 153/67 95
09/21/24 06:57 09/21/24 09:46 09/21/24 06:57 09/21/24 09:46 09/21/24 11:27
I&O
09/20/24 09/21/24 09/22/24
06:59 06:59 06:59
Intake Total 680 / 680 920 / 920
Balance 680 / 680 920 / 920
--- NOTE | 2024-09-21 15:35 | CM ---
Chart reviewed. Therapy rec home PT at d/c
Discussed w/ patient, declined home PT. Patient shared her daughter is a PT at [facility] and will be able to assist her. Daughter currently in [place] w/ her family and will return Saturday. Patient stated she will be okay until her daughter
returns
Possible d/c tomorrow, patient aware
IMM verbally reviewed, copy provided, copy on chart
Plan: Home potentially tomorrow, no needs
[2024-09-21] MEDS: NEURONTIN 200 MG PO (22:32)
[2024-09-22 03:49] VITALS: BP 119/67
[2024-09-22 07:02] VITALS: BP 171/64
[2024-09-22 07:03] VITALS: BP 104/56; BP 170/61; BP 171/64; PULSE 61; PULSE 66; PULSE 68
[2024-09-22 07:41] LABS: Hematocrit 36.7 % (37.0-47.0); Hemoglobin 12.3 g/dL (12.0-16.0); Mean Corp Hgb Conc. 33.5 g/dL (33.0-37.0); Mean Corpuscular Volume 92.7 fL (81.0-99.0); Nucleated Red Blood Cells % 0 %; Platelet Count 228 10^3/uL (130-400); Red Cell Dist. Width 12.4 % (11.5-14.5)
[2024-09-22 08:24] LABS: Blood Urea Nitrogen 55 mg/dl (7-17); Calcium 8.8 mg/dl (8.4-10.2); Carbon Dioxide 23 mmol/L (22-30); Chloride 106 mmol/L (98-107); Estimated Creatinine Clearance 12 ml/min; Glucose 101 mg/dl (70-99); Potassium 4.1 mmol/L (3.5-5.1); Sodium 136 mmol/L (135-145); eGFR 22.38
--- NOTE | 2024-09-22 08:44 | W.CARD.DEVCH ---
Cardiac Device Check
-
Device: Pacemaker
Stem Assembler: [employer]
The patient's device was interrogated with assistance of the device sales representative gas service followed by a complete physician review. The device had normal function. No abnormalities seen.
Device rep contacted for device check and reprogramming today to increase base pacing rate to 70.
--- NOTE | 2024-09-22 08:45 | W.PN.CARDCBS ---
Addendum entered and electronically signed by Naldo Cordon MD 09/22/24 13:16:
89-year-old woman [employer] pacemaker, paroxysmal A-fib 30% burden, HFpEF, Parkinson's, tremor, CKD 3, with hyperkalemia on spironolactone admitted with hypertensive urgency. She is also markedly orthostatic. Similar hospitalization in July 2024,
was on doxazosin
PMH: Parkinson's, PAF, [employer] pacer, HFpEF, orthostasis, hypertension, tremor, CKD 3 with hyperkalemia
Current meds: Amiodarone 200-day, apixaban 2.5 mg twice daily, Farxiga 5 mg a day, gabapentin 200 mg at bedtime, amlodipine 5 mg daily, metoprolol ER 50 twice daily, hydralazine 75 3 times daily
She says she is not dizzy today.
143/69, pulse 74, systolic pulse goes from 171 supine to 104 standing, pulse does not significantly change, this is prior to reprogramming of pacemaker. Head neck exam notable for tremor, lungs are clear, regular rate and rhythm, soft systolic
murmur, abdomen benign extremities without edema
Hemoglobin is 12.3, white count is 9.3, BUN and creatinine are 55 and 2.1, creatinine had been 2.0, overall creatinine at baseline
Impression:
As below per Veronica Hutton. Reviewed in detail and agree, unless otherwise specified
Plan:
She is symptomatically improved, though still with supine hypertension and substantial BP drop to roughly 100 mmHg systolic with standing. However, current balance between send supine hypertension and upright hypotension is reasonable. Would not
change medications as currently listed.
.
Okay for discharge from cardiac standpoint.
Follow-up appointment with cardiology is September 29
Original Note:
Today's Communication / Plan
-
Intolerant to TEDS and abdominal binder
[employer] pacer base rate increased to 70 prior to d/c
Impression / Plan
-
Primary Personal Development Coach: Dr. Sood
Assessment:
Presentation with dizziness/lightheadedness 09/17/2024
Hyperkalemia
SAVANNAH
HTN urgency
Admission to [facility] for hypertensive urgency 08/10/2024 until 08/18/2024
Paroxysmal atrial fibrillation
30% burden by device interrogation 09/17/24
Chronic OAC with Eliquis
Chronic amiodarone therapy
Sick sinus syndrome status post DC [employer] pacemaker
Chronic HFpEF
Hypertension
Parkinsonism with essential tremor
CKD
COPD
History of TIA 2005
Aortic ectasia
ECHO 06/03/23 at OSH: EF 70%, mild concentric LVH, MAC, mild to moderate MR, mild AI, moderate TR with PA SP 64 mmHg
Echo 09/18/24: EF 65%, mild-mod MR, mild-mod AI, PA 31
Plan:
-Patient with recent hospitalization for hypertensive urgency now presents back to [facility] due to dizziness as well as continued suboptimally controlled blood pressures. She reports feeling poorly
-Orthostatic vital signs completed 09/22/2024 AM and supine BP 171/64 with HR 66, sitting BP 170/60 with HR 68 and standing BP 104/56 with HR 61. Nursing is bedside to confirm, patient says she was asymptomatic with this.
-Patient was unable to tolerate thigh-high teds due to leg pain. Patient has also been intolerant to abdominal binder.
-[employer] device manufacturers service representative to visit patient 09/22/2024 and increase base pacing rate to 70 bpm. Patient within 30% A-fib burden on device check 09/17/2024 and seems to feel better when her HR is greater than 70. When patient is in SR her HR is
in the 60s. I have reached out to the [employer] manufacturers service representative to see if they can visit patient in the hospital and increase her baseline HR to 70, 09/13/2024.
-As noted, A-fib burden at 30%. Outpatient dose of amiodarone 200 mg daily has been continued, there was some concern that this may be contributing to tremor, this could also be related to Parkinson's disease. Of note patient was previously on
Multaq, but this was switched back to amiodarone due to relative ineffectiveness. Plan for now is to continue with amiodarone.
-Patient has PPM in place so there is always the option of AVJ ablation
-Outpatient dose of Toprol-XL increased to 50 mg BID this admission and all doses have been tolerated thus far
-Some degree of permissive HTN to prevent orthostasis and falls. Due to the level of HTN at times would not add midodrine. Also placed an order to keep HOB at 30 degrees to avoid supine HTN.
-Outpatient dose of doxazosin 1 mg HS has been stopped
-Outpatient dose of hydralazine increased to 75 mg TID this admission
-Outpatient dose of spironolactone stopped on admission due to hyperkalemia
-New to amlodipine 5 mg BID and all doses tolerated thus far
-Outpatient dose of Farxiga 5 mg daily was initially held, but now resumed
-Cardiology f/u being arranged
Progress Note - Personal Development Coach
Subjective
Date of Service: September 22, 2024
She says she is going home today and that she is fine, the TEDS hurt her ankles
Objective
Labs:
09/22/24 07:
09/22/24 07:
Labs
Hgb 12.3 g/dL (12.0-16.0) 09/22/24 07:
Hct 36.7 % (37.0-47.0) L 09/22/24 07:
Plt Count 228 10^3/uL (130-400) 09/22/24 07:
Sodium 136 mmol/L (135-145) 09/22/24:
Potassium 4.1 mmol/L (3.5-5.1) 09/22/24 07:
BUN 55 mg/dl (7-17) H 09/22/24 07:
Creatinine 2.1 mg/dL (0.6-1.0) H 09/22/24:
Glucose 101 mg/dl (70-99) H 09/22/24 07:29
Vital Signs and I&O:
Vital Signs
Temp Pulse Resp BP Pulse Ox
97.8 F 73 15 119/67 94
09/22/24 03:49 09/22/24 03:49 09/22/24 03:49 09/22/24 03:49 09/22/24 03:49
Vital Signs
Temp Pulse Resp BP Pulse Ox
97.8 F 73 15 119/67 94
09/22/24 03:49 09/22/24 03:49 09/22/24 03:49 09/22/24 03:49 09/22/24 03:49
Intake & Output
09/20/24 09/21/24 09/22/24 09/23/24
06:59 06:59 06:59 06:59
Intake Total 680 / 680 920 / 920 780 / 780
Balance 680 / 680 920 / 920 780 / 780
Physical Exam
Physical Exam
GEN: AAOx3
LUNGS: RA. No wheeze
CV: A paced on tele
[2024-09-22 09:03] VITALS: BP 104/56; BP 170/61; BP 171/64; PULSE 61; PULSE 66; PULSE 68
[2024-09-22] MEDS: ELIQUIS 2.5 MG PO (09:16)
[2024-09-22] MEDS: APRESOLINE 25 MG PO (09:16)
[2024-09-22] MEDS: FARXIGA 5 MG PO (09:16)
[2024-09-22] MEDS: NORVASC 5 MG PO (09:16)
[2024-09-22] MEDS: TOPROL XL 50 MG PO (09:16)
[2024-09-22] MEDS: PACERONE 200 MG PO (09:16)
[2024-09-22] MEDS: APRESOLINE 50 MG PO (09:16)
--- NOTE | 2024-09-22 10:59 | W.PN.HOSP.TC ---
Today's Communication/Plan
-
Monitor vitals
See plan
Device rep to come later today per cards prior to dc
dc today
cw current meds
time of discharge 36 minutes
Assessment / Plan
Assessment / Plan
89yo F with PMHX of HTN, Afib on ELiquis, CAD, s/p PPM, HFpEF, parkinsonism with essential tremor and recent admisison for HTN urgency came with same. Patient also complained that after her previous discharge she started to feel frequently dizzy on
ambulation. in ED - on admisison found orthostatic drop in BP
A/P:
#HTN Urgency
#Dysautonomia, most likely 2/2 parkinsonism
#Paroxysmal Afib
Abdominal binder on ambulation - discussed with patient PCP
Recently stopped clonidine as outpatient
Cardio to adjust meds: increase Toprol, restart Norvasc and cont hydralazine. Stop spironolactone. Goal blood pressure would be in the 140-160 systolic range
Might need AV ablation as outpatient since amiodarone can contribute to worsening of tremors
Echo: EF 65%, stage 1 diastolic, moderate MR, moderate AR, mild-moderate pulmonary HTN
PPM showing 30% burden Afib
PT/OT
TSH WNL
Patient does have orthostasis with standing at times but asymptomatic. cw TEDS. Per daughter not compliant at times. Would likely need to accept some degree of higher blood pressure off. Discussed with cardiology, there is no repeat
echocardiogram. Device interrogation ordered. Rep will be here later today to adjust. Patient for discharge today after that
#Essential tremor with parkinsonism
Previously evaluated by neurology: advised Gabapentin and outpatient follow up. Patient followed by neurologist, had DARYN recently
#Mild leukocytosis
no concern for UTI on UA
no respiratory symptoms and clean chest XR
COVID-19 and Influenza neg
follow clinically
#SAVANNAH on CKD stage 4
resolved
stop diuretics
DVT ppx on elqiuis
Full code
General: No Apparent Distress
HEENT: Normocephalic
Cardiac: Irregular Rhythm
GI: Soft, Nontender and Nondistended
Musculoskeletal: No Edema
Psych: Calm
Anticipated Discharge: Today
Subjective/Interval History
-
Date of Service: September 22, 2024
denies pain
Objective Data
-
Labs:
Laboratory Results
09/22/24
07:29
WBC 9.3
Hgb 12.3
Hct 36.7 L
Plt Count 228
Sodium 136
Potassium 4.1
Chloride 106
Carbon Dioxide 23
BUN 55 H
Creatinine 2.1 H
Glucose 101 H
Calcium 8.8
Vital Signs:
Vital Signs
Temp Pulse Resp BP Pulse Ox
97.5 F 66 16 171/64 96
09/22/24 07:02 09/22/24 07:02 09/22/24 07:02 09/22/24 07:02 09/22/24 07:02
I&O
09/21/24 09/22/24 09/23/24
06:59 06:59 06:59
Intake Total 920 / 920 780 / 780
Balance 920 / 920 780 / 780
[2024-09-22 11:14] VITALS: BP 143/69
--- NOTE | 2024-09-22 12:28 | W.DCSUMMARY ---
Discharge Summary
Discharge Data
Date of Admission: 09/18/24
Date of Discharge: 09/22/24
-
Pending Results: No
Hospital Course
89-year-old female with past medical history of hypertension, A-fib on Eliquis, CAD status post pacemaker, CHF, Parkinson's disease with essential tremor, CKD stage IV came to the hospital with hypertensive urgency. Patient was seen by cardiology
throughout hospitalization. Her Aldactone was stopped on this hospitalization. We did increase her Toprol and hydralazine. She did had some episodes of orthostasis which limited uptitrating her blood pressure medications. Per cardiology
recommendation, they wanted to see patient response outpatient before doing further titration. She did had significant atrial fibrillation burden so amiodarone was continued. Cardiology did patient device interrogation and her pacemaker base rate
was increased to 70. Once her symptoms continue to improve, she was then discharged home with instructions to follow-up with all her physicians outpatient.
Discharge Plan
-
Patient Disposition: Home (Routine Discharge)
Discharge Diagnosis/Procedures: Hypertensive urgency
Dysautonomia
Paroxysmal atrial fibrillation
SAVANNAH on CKD stage IV
Orthostasis
Condition: Fair
Diet: As tolerated
Activity: As tolerated
Bathing Restrictions: None
Referrals:
UNKNOWN - PT DOES,NOT KNOW [Family Provider] - in less than 1 week
Ayush Sood, [Active, Cardiology] - 09/29/24 4:20 pm
Referral Note: The time of your appointment at the [place] office has changed from 11:00AM to 4:20PM on 09/29/24. Please call with questions.
Prescriptions:
New
amlodipine 5 mg Tablet
5 mg PO BID Qty: 60 0RF
metoprolol succinate 25 mg Tablet Extended Release 24 Hr
50 mg PO BID 30 Days Qty: 120 0RF
Continued
amiodarone 200 mg Tablet
200 mg PO DAILY
cyanocobalamin (vitamin B-12) 1,000 mcg Tablet
1,000 mcg PO DAILY
cholecalciferol (vitamin D3) [Vitamin D3] 25 mcg (1,000 unit) Tablet
25 mcg PO DAILY
Eliquis 2.5 mg Tablet
2.5 mg PO BID
dapagliflozin propanediol [Farxiga] 5 mg Tablet
5 mg PO DAILY
doxazosin 1 mg tablet
1 mg PO HS
tolterodine 4 mg capsule,extended release 24hr
4 mg PO DAILY
Patient Comments:
09/17/2024, pt. unsure if this is a morning or evening med.
gabapentin 100 mg capsule
100 mg PO HS
Changed
hydralazine 25 mg Tablet
75 mg PO BID 30 Days Qty: 180 0RF
Discontinued
metoprolol succinate [Toprol XL] 25 mg Tablet Extended Release 24 Hr
25 mg PO BID
spironolactone 25 mg Tablet
12.5 mg PO DAILY Qty: 0 0RF
Discharge Orders:
Discharge Patient (As Directed); Ordered 09/22/24
Ordered By: Jameson Croft
Discharge Date and Time
Discharge Date/Time: 09/22/24 15:36
Print Language: ICELANDIC
[2024-09-22 14:37] VITALS: BMI 19.2
--- NOTE | 2024-09-22 15:34 | PTCARENOTE ---
IV discontinued. Tele pack removed. Discharge paperwork printed and reviewed with patient and family members at bedside. Pt and family had multiple questions about medication changes that were addressed and explained. Pt transported off the floor
via wheelchair with all belongings from the room accompanied by family members.
== END 2024-09-22 15:36 | disposition home or self-care (01) ==
LOC: 4 EAST ACU 00:27
PROVIDERS: Internal Medicine; Student in an Organized Health Care Education/Training Program; ADMITTING PHYSICIAN Hospitalist; ATTENDING PHYSICIAN Internal Medicine; EMERGENCY PHYSICIAN Emergency Medicine; OTHER PHYSICIAN Internal Medicine Cardiovascular Disease
DX: I16.0 Hypertensive urgency (principal); N17.9 Acute kidney failure, unspecified; G20.A1 Parkinson's disease without dyskinesia, without mention of fluctuations; I13.0 Hypertensive heart and chronic kidney disease with heart failure and stage 1 through stage 4 chronic kidney disease, or unspecified chronic kidney disease; I48.0 Paroxysmal atrial fibrillation; I49.5 Sick sinus syndrome; I50.32 Chronic diastolic (congestive) heart failure; N18.4 Chronic kidney disease, stage 4 (severe); J44.9 Chronic obstructive pulmonary disease, unspecified; I95.1 Orthostatic hypotension; E87.5 Hyperkalemia; I77.810 Thoracic aortic ectasia; I25.10 Atherosclerotic heart disease of native coronary artery without angina pectoris; Z79.01 Long term (current) use of anticoagulants; Z79.899 Other long term (current) drug therapy; Z86.73 Personal history of transient ischemic attack (TIA), and cerebral infarction without residual deficits; Z95.0 Presence of cardiac pacemaker
CPT/HCPCS: 71045; 80048; 80053; 81003; 81015; 84443; 84484; 85025; 85027; 87502; 87811; 93005; 93288; 93306; 96374; 96375; 97116; 97162; 97530; 99285; G0378

== ENCOUNTER 2025-01-13 15:35 | Emergency (ER) | payer MEDICARE, SELFPAY ==
[2025-01-13 15:45] VITALS: BP 186/75
[2025-01-13 16:57] VITALS: BP 188/78
[2025-01-13 17:04] VITALS: BMI 19.7
--- NOTE | 2025-01-13 17:23 | ED.MUSCINJ ---
HPI-Injury
General
Chief Complaint: Musculo-Skeletal Complaint
Source: patient and family
Exam Limitations: none
Time Seen by Provider: 01/13/25 17:10
Nursing documentation reviewed up to this point in time: agreed with
History of Present Illness-Injury
Is this injury a work related problem?: No
Is pt an associate of [facility]/[place]?: No
Initial Injury comments:
Patient to the emergency department for evaluation of right elbow pain. States she tripped and fell while walking into a restaurant 1 week ago. She denies hitting her head. Brought to emergency department by family for evaluation.
Past History
Past History
ED Past Medical History: Arrthythmia and HTN
ED Past Surgical History: Cardiac (Pacemaker)
Social History
Tobacco: Non-smoker
Alcohol: None
Drug: None
Personal:
Living: with family
Review of Systems
Review of Systems
Allergies reviewed?: Yes
All Other Systems: ROS reviewed and negative except as documented in HPI and ROS
Constitutional: Reports no symptoms
EENT: Reports no symptoms
Respiratory: Reports no symptoms
Cardiac: Reports no symptoms
ABD/GI: Reports no symptoms
Musculoskeletal: Reports joint pain (Pain to right elbow)
Skin: Reports no symptoms
Neurological: Reports no symptoms
Psychiatric: Reports no symptoms
Musculoskeletal Injury Exam
Musculoskeletal Injury Exam
Right Elbow:
Pain with Movement?: Moderate
Tender to palpation?: Moderate
Soft tissue swelling?: Mild
External deformity and angulation?: None
Joint effusion?: None
Contusion?: Moderate
Hematoma-local bleeding into tissue?: Moderate
Strain- Sprain- Tear (Connective tissue injury)?: Moderate
Crepitus with movement?: No
Joint instability?: No
Malalignment/deformity?: No
Range of motion: Limited
Distal skin color and temperature: normal-warm & good color
Capillary Refill: normal
Normal distal neurovascular exam?: Yes
Peripheral Pulses: radial (right): 3+
Phy Exam
General Physical Exam
General Presentation: well appearing and no apparent distress
General age: appears stated age
General Skin: warm and dry
General Habitus: normal
General Mental: alert
Musculoskeletal Exam
Musculoskeletal Exam: neuro vasc intact and other (No pain to right shoulder wrist or hand.)
Skin Exam
Skin Exam: normal color, warm/dry and no rash
Psychiatric Exam
Psychiatric Exam: normal mood/affect
Injury Course
Orders/Labs/Results
Orders:
Orders
01/13/25 15:48
CR Elbow - Right Min 3 Views Urgent
Comment:
Reason For Exam: fall
CR Forearm - Right 2 View Urgent
Comment:
Reason For Exam: fall
01/13/25 17:21
Sling Right-Treatment ONCE
01/13/25 17:27
Long Arm Right-Treatment ONCE
*Radiology
Radiology exam reviewed: radiology read reviewed
*Pulse Oximetry
SaO2: 98
Oxygen Mode of Delivery: Room air
Patient hypoxic: no
*Critical Care Note
Total Time (30-74mins, 75-104mins- exclusive of procedures): Not Applicable
Update Note
Update Note:
Patient to the emergency department for evaluation of right elbow pain. She reports a trip and fall approximately 1 week ago. No history of head injury. Right forearm and elbow with large amount of old bruising. She is currently maintained on
Eliquis. Pain to posterior right elbow. She has full range of motion to right elbow joint. X-ray reviewed. Confirms right olecranon fracture. She was placed in a long-arm splint and sling. Will discharge home tonight and she will follow-up
with orthopedics. Signs and symptoms return to the emergency department discussed with patient she is agreeable to this plan
ED Attending Note
-
Portions of this chart may have been created with voice recognition software.� Occasional wrong word or��sound alike� substitutions may have occurred due to the inherent limitations of voice recognition software.
Discharge Plan
Departure
Patient Disposition: Home (Routine Discharge)
Date of Disposition: 01/13/25
Time of Disposition: 17:21
Patient with high blood pressure during this ER visit?: No
Condition: Good
Covid-19: Not Applicable
Discharge Problem:
Closed olecranon fracture
Instructions: Elbow Fracture, Adult ED, Cold therapy for pain, Splint care - ED (DC), How to use a shoulder sling - ED (DC)
Prescriptions:
No Action
amiodarone 200 mg Tablet
200 mg PO DAILY
cyanocobalamin (vitamin B-12) 1,000 mcg Tablet
1,000 mcg PO DAILY
cholecalciferol (vitamin D3) [Vitamin D3] 25 mcg (1,000 unit) Tablet
25 mcg PO DAILY
Eliquis 2.5 mg Tablet
2.5 mg PO BID
dapagliflozin propanediol [Farxiga] 5 mg Tablet
5 mg PO DAILY
doxazosin 1 mg tablet
1 mg PO HS
tolterodine 4 mg capsule,extended release 24hr
4 mg PO DAILY
Patient Comments:
09/17/2024, pt. unsure if this is a morning or evening med.
gabapentin 100 mg capsule
100 mg PO HS
amlodipine 5 mg Tablet
5 mg PO BID Qty: 60 0RF
metoprolol succinate 25 mg Tablet Extended Release 24 Hr
50 mg PO BID 30 Days Qty: 120 0RF
hydralazine 25 mg Tablet
75 mg PO BID 30 Days Qty: 180 0RF
Referrals:
Claude Casillas MD [Active, Orthopedics] - Call in 1-3 days for appt
Interventions
Interventions:
*Risk Screen - Suicide Last Done: 01/13/25 15:45
*General Assessment Last Done: 01/13/25 15:45
*Neglect/Abuse Screening Last Done: 01/13/25 15:45
*ED- Fall Risk Assessment Last Done: 01/13/25 17:04
*ED COVID-19 Vaccine History Last Done: 01/13/25 16:57
*ED Influenza Vaccine History Last Done: 01/13/25 16:57
ED-Musculoskeletal Assessment Last Done: 01/13/25 17:04
Discharge Date and Time
Print Language: PUERTO RICAN
[2025-01-13 18:25] VITALS: BP 168/85
== END 2025-01-13 18:32 | disposition home or self-care (01) ==
LOC: EMR 15:35
PROVIDERS: EMERGENCY PHYSICIAN Student in an Organized Health Care Education/Training Program; FAMILY PHYSICIAN Family Medicine
DX: S52.021A Displaced fracture of olecranon process without intraarticular extension of right ulna, initial encounter for closed fracture (principal); W01.0XXA Fall on same level from slipping, tripping and stumbling without subsequent striking against object, initial encounter; Y93.01 Activity, walking, marching and hiking; Y92.511 Restaurant or cafe as the place of occurrence of the external cause; I10 Essential (primary) hypertension; Z79.01 Long term (current) use of anticoagulants; Z95.0 Presence of cardiac pacemaker
CPT/HCPCS: 99283; 29125; 73080; 73090